=== PATIENT | female | born 1995 | race Caucasian/White ===

== ENCOUNTER 2016-08-17 22:20 | Emergency (ER) | payer OTHER ==
[2016-08-17 22:39] VITALS: BP 117/72; PULSE 109; TEMP 100.1; BMI 30.2
--- NOTE | 2016-08-17 22:42 | PDOC ---
History of Present Illness - General History Source: Patient Exam Limitations: No Limitations - History of Present Illness Timing/Duration: 1 week Associated Symptoms: denies: fever/chills, nausea/vomiting <Raj Albrecht - Last Filed: 08/17/16 23:56> <Branden Elliott - Last Filed: 08/25/16 00:41> - General Chief Complaint: Sore Throat Stated Complaint: THROAT PAIN Past History - Travel Traveled outside of the country in the last 30 days: No Close contact w/someone who was outside of country & ill: No - Past Medical History Anemia: No Asthma: No Cancer: No Cardiac Disorders: No Diabetes: No HTN: No Seizures: No Thyroid Disease: No - Surgical History Abdominal Surgery: No Appendectomy: No Cardiac Surgery: No Gastric Stapling: No - Immunization History Td Vaccination: Yes - Psycho/Social/Smoking Cessation Hx Anxiety: No Suicidal Ideation: No Smoking Status: No Smoking History: Never smoked Have you smoked in the past 12 months: No Number of Cigarettes Smoked Daily: 0 Information on smoking cessation initiated: No Hx Alcohol Use: No Drug/Substance Use Hx: No Substance Use Type: None Hx Substance Use Treatment: No <Tootie Albrechtui - Last Filed: 08/17/16 23:56> <Branden Elliott - Last Filed: 08/25/16 00:41> - Past Medical History Allergies/Adverse Reactions: Allergies Allergy/AdvReac Type Severity Reaction Status Date / Time No Known Allergies Allergy Verified 08/17/16 23:42 Home Medications: Ambulatory Orders Pnv95/Ferrous Fumarate/FA [ Tablet] 1 each PO DAILY 11/20/12 Review of Systems - Review of Systems Able to Perform ROS?: Yes Comments:: 08/17/16 22:41 CONSTITUTIONAL: Absent: fever, chills, diaphoresis, generalized weakness, malaise, loss of appetite HEENT: +throat pain, Absent: rhinorrhea, nasal congestion, throat swelling, difficulty swallowing, mouth swelling, ear pain, eye pain, visual Changes CARDIOVASCULAR: Absent: chest pain, loss of consciousness, palpitations, irregular heart rate, peripheral edema RESPIRATORY: Absent: cough, shortness of breath, dyspnea with exertion, orthopnea, wheezing, stridor, hemoptysis GASTROINTESTINAL: Absent: abdominal pain, abdominal distension, nausea, vomiting, diarrhea, constipation, melena, hematochezia GENITOURINARY: Absent: dysuria, frequency, urgency, hesitancy, hematuria, flank pain, genital pain MUSCULOSKELETAL: Absent: myalgia, arthralgia, joint swelling SKIN: Absent: rash, itching, pallor HEMATOLOGIC/IMMUNOLOGIC: Absent: easy bleeding, easy bruising, lymphadenopathy, frequent infections ENDOCRINE: Absent: unexplained weight gain, unexplained weight loss, heat intolerance, cold intolerance NEUROLOGIC: Absent: headache, focal weakness or paresthesias, dizziness, unsteady gait, seizure, mental status changes, bladder or bowel incontinence PSYCHIATRIC: Absent: anxiety, depression, suicidal or homicidal ideation, hallucinations. Is the patient limited Vietnamese proficient: No <Raj Albrecht - Last Filed: 08/17/16 23:56> *Physical Exam - Vital Signs Last Vital Signs Temp Pulse Resp BP Pulse Ox 100.1 F H 109 H 18 117/72 100 08/17/16 22:37 08/17/16 22:37 08/17/16 22:37 08/17/16 22:37 08/17/16 22:37 - Physical Exam Comments: 08/17/16 22:42 GENERAL: Well developed, well nourished. Awake and alert. No acute distress. HEENT: Normocephalic, atraumatic. PERRLA, EOMI. No conjunctival pallor. Sclera are non- icteric. Moist mucous membranes. Oropharynx is clear. NECK: Supple. Full ROM. No JVD. Carotid pulses 2+ and symmetric, without bruits. No thyromegaly. No lymphadenopathy. CARDIOVASCULAR: Regular rate and rhythm. No murmurs, rubs, or gallops. Distal pulses are 2+ and symmetric. PULMONARY: No evidence of respiratory distress. Lungs clear to auscultation bilaterally. No wheezing, rales or rhonchi. ABDOMINAL: Soft. Non-tender. Non-distended. No rebound or guarding. No organomegaly. Normoactive bowel sounds. MUSCULOSKELETAL Normal range of motion at all joints. No bony deformities or tenderness. No CVA tenderness. EXTREMITIES: No cyanosis. No clubbing. No edema. No calf tenderness. SKIN: Warm and dry. Normal capillary refill. No rashes. No jaundice. NEUROLOGICAL: Alert, awake, appropriate. Cranial nerves 2-12 intact. No deficits to light touch and temperature in face, upper extremities and lower extremities. No motor deficits in the in face, upper extremities and lower extremities. Normoreflexic in the upper and lower extremities. Normal speech. Toes are down- going bilaterally. Gait is normal without ataxia. PSYCHIATRIC: Cooperative. Good eye contact. Appropriate mood and affect. <Raj Albrecht - Last Filed: 08/17/16 23:56> - Vital Signs Last Vital Signs Temp Pulse Resp BP Pulse Ox 100.1 F H 109 H 18 117/72 100 08/17/16 22:37 08/17/16 22:37 08/17/16 22:37 08/17/16 22:37 08/17/16 22:37 <Branden Elliott - Last Filed: 08/25/16 00:41> ED Treatment Course - ADDITIONAL ORDERS Additional order review: 08/17/16 22:05 Throat Culture - Final Throat NO BETA HEMOLYTIC STREPTOCOCCI ISOLATED Group A Strep Rapid Antigen - Final <Branden Elliott - Last Filed: 08/25/16 00:41> Medical Decision Making - Medical Decision Making 08/25/16 00:41 ED Attending: I was available for involvement of this case as needed; supervised MLP. <Branden Elliott - Last Filed: 08/25/16 00:41> *DC/Admit/Observation/Transfer - Discharge Dispostion Admit: No <Raj Albrecht - Last Filed: 08/17/16 23:56> <Branden Elliott - Last Filed: 08/25/16 00:41> Diagnosis at time of Disposition: Pharyngitis Qualifiers: Pharyngitis/tonsillitis etiology: unspecified etiology Qualified Code(s): J02.9 - Acute pharyngitis, unspecified - Discharge Dispostion Disposition: HOME Condition at time of disposition: Stable - Referrals Referrals: Meghann Haddad MD [Primary Care Provider] - Branden Mendez MD [Staff Physician] - - Patient Instructions Printed Discharge Instructions: DI for Viral Pharyngitis Additional Instructions: Follow up with Dr. Mendez/ENT Increase fluids Tylenol alternating with Motrin as needed for pain Return to the Er for severe/persistent/worsening symptoms Progress Note - Progress Note Progress Note: 21-year-old female presents to the emergency department complaining of a sore throat 1 week. Patient states she was seen by her PMD 3 days ago and had a negative strep test. Patient denies nausea/vomiting, fever/chills, headache, dizziness, lightheadedness, neck pains, back pains, jaw pains, difficulty swallowing/drinking, chest pain, shortness of breath, abdominal pains. Patient was seen in the emergency department in [place] and was informed to take Tylenol/ Motrin for pain. Patient states she's here for second opinion. <Raj Albrecht - Last Filed: 08/17/16 23:56>
== END 2016-08-18 00:12 | disposition home or self-care (01) ==
LOC: JER 22:20 → SUPCPDRO 22:20 → JER 08-18 00:12
DX: J02.9 Acute pharyngitis, unspecified (principal)
CPT/HCPCS: 87070; 87430; 99282-25

== ENCOUNTER 2018-07-24 12:59 | Emergency (ER) | payer OTHER ==
[2018-07-24 13:07] VITALS: TEMP 98.2; BMI 27.2
[2018-07-24] MEDS ORDERED: SODIUM CHLORIDE 1,000 ML IV STA (13:46)
[2018-07-24] MEDS ORDERED: ONDANSETRON 4 MG/2 ML VIAL IVPUSH ONE (13:46)
--- NOTE | 2018-07-24 13:46 | PDOC ---
History of Present Illness - General Chief Complaint: Vomiting/Diarrhea Stated Complaint: VOMITING DIARRHEA Time Seen by Provider: 07/24/18 13:30 History Source: Patient Exam Limitations: No Limitations - History of Present Illness Travel History: No Initial Comments: 07/24/18 13:54 HISTORY OF PRESENT ILLNESS: 23-year-old woman denies medical history presents emergency department for upper abdominal pain, nausea and vomiting starting last night. Patient reports she has been unable to tolerate anything orally over the past 18 hours. She reports her most recent vomitus was bilious in nature. Prior to that it was all undigested food and water that she had tried to drink. Patient reports she had chicken breast with avocado and rice last night and other people who ingested the same food or not expressing any symptoms. She reports having intermittent bowel movements reported had 2 episodes of diarrhea which was loose brown stools today. Prior to that her last bowel movement was approximately 2 days ago which was a formed brown stool. Patient reports she is sexually active and had complications with her oral contraception which led to a lapse in treatment. Patient reports she had a menstrual period but it was not as heavy as her usual menstrual period. She reports a negative home test. No recent travel or sick contacts. PAST MEDICAL HISTORY: Denies past medical history SURGICAL HISTORY: Denies ALLERGIES: No known drug allergies REVIEW OF SYSTEMS General/Constitutional: Denies fever or chills. Denies weakness, weight change. HEENT: Denies change in vision. Denies ear pain or discharge. Denies sore throat. Cardiovascular: Denies chest pain or shortness of breath. Respiratory: Denies cough, wheezing, or hemoptysis. Gastrointestinal:see HPI Genitourinary: Denies dysuria, frequency, or change in urination. Musculoskeletal: Denies joint or muscle swelling or pain. Denies neck or back pain. Skin and breasts: Denies rash or easy bruising. Neurologic: Denies headache, vertigo, loss of consciousness, or loss of sensation. Psychiatric: Denies depression or anxiety. Endocrine: Denies increased thirst. Denies abnormal weight change. Hematologic/Lymphatic: Denies anemia, easy bleeding, or history of blood clots. Allergic/Immunologic: Denies hives or skin allergy. Denies latex allergy. PHYSICAL EXAM General Appearance: Well-appearing, appropriately dressed. No apparent distress , no intoxication. HEENT: EOMI, PERRLA, normal ENT inspection, normal voice, TMs normal, pharynx normal. No conjunctival pallor. No photophobia, scleral icterus. Neck: Supple. Trachea midline. No tenderness, rigidity, carotid bruit, stridor , lymphadenopathy, or thyromegaly. Respiratory/Chest: Lungs CTAB. No shortness of breath, chest tenderness, respiratory distress, accessory muscle use. No crackles, rales, rhonchi, stridor , wheezing, dullness Cardiovascular: RRR. S1, S2. No JVD, murmur, bradycardia, tachycardia. Vascular Pulses: Dorsalis-Pedis (R): 2+, Dorsalis-Pedis (L): 2+ Gastrointestinal/Abdominal: Normoactive bowel sounds. Abdomen soft nondistended. Right upper quadrant tenderness noted. Positive guarding. Negative Menon sign remainder of abdominal exam is benign. No organomegaly, pulsatile mass, hernia, hepatomegaly or splenomegaly present. Lymphatic: No adenopathy, tenderness. Musculoskeletal/Extremities: Normal inspection. FROM of all extremities, normal capillary refill. Pelvis Stable. No CVA tenderness. No tenderness to extremities, pedal edema, swelling, erythema or deformity. Integumentary: Appropriate color, dry, warm. No cyanosis, erythema, jaundice or rash Neurologic: hospital librarian II-XII intact. Fully oriented, alert. Appropriate mood/affect. Motor strength 5/5. No appreciable EOM palsy, facial droop or sensory deficit. Past History - Past Medical History Allergies/Adverse Reactions: Allergies Allergy/AdvReac Type Severity Reaction Status Date / Time No Known Allergies Allergy Verified 07/24/18 13:04 Home Medications: Ambulatory Orders Famotidine [Pepcid] 20 mg PO DAILY PRN #30 tablet 07/24/18 Ondansetron [Zofran Odt -] 4 mg SL BID PRN #20 od.tablet 07/24/18 Anemia: No Asthma: No Cancer: No Cardiac Disorders: No COPD: No Diabetes: No HTN: No Seizures: No Thyroid Disease: No - Surgical History Abdominal Surgery: No Appendectomy: No Cardiac Surgery: No Gastric Stapling: No - Immunization History Td Vaccination: Yes - Suicide/Smoking/Psychosocial Hx Smoking Status: No Smoking History: Never smoked Have you smoked in the past 12 months: No Number of Cigarettes Smoked Daily: 0 Hx Alcohol Use: No Drug/Substance Use Hx: No Substance Use Type: None Hx Substance Use Treatment: No *Physical Exam - Vital Signs Last Vital Signs Temp Pulse Resp BP Pulse Ox 98.2 F 82 18 102/57 L 99 07/24/18 13:06 07/24/18 13:06 07/24/18 13:06 07/24/18 13:06 07/24/18 13:06 Moderate Sedation - Procedure Monitoring Vital Signs: Procedure Monitoring Vital Signs Temperature 98.2 F 07/24/18 13:06 Pulse Rate 82 07/24/18 13:06 Respiratory Rate 18 07/24/18 13:06 Blood Pressure 102/57 L 07/24/18 13:06 O2 Sat by Pulse Oximetry (%) 99 07/24/18 13:06 ED Treatment Course - LABORATORY CBC & Chemistry Diagram: 07/24/18 14:00 07/24/18 14:00 Medical Decision Making - Medical Decision Making 07/24/18 13:57 A/P: 23-year-old woman abdominal pain, nausea and vomiting for 1 day Differential diagnosis includes but not limited to obstruction, perforation, peritonitis, infection, cholecystitis, cholelithiasis, pancreatitis, GERD, ACS, Labs including lipase and type and screen Urinalysis, urine culture, urine testing Gallbladder ultrasound Normal saline 1 L Zofran 4 mg IV push no 07/24/18 14:12 Patient with syncopal episode during laboratory draw. Blood sugar collected noted to be 74. IV fluids currently infusing. Patient has returned to baseline without intervention. Pt signed out to MD Phillips. *DC/Admit/Observation/Transfer Diagnosis at time of Disposition: Viral syndrome Nausea and vomiting Qualifiers: Vomiting type: unspecified Vomiting Intractability: non-intractable Qualified Code(s): R11.2 - Nausea with vomiting, unspecified Cholelithiasis Qualifiers: Cholelithiasis location: gallbladder Cholecystitis presence: without cholecystitis Biliary obstruction: without biliary obstruction Qualified Code(s) : K80.20 - Calculus of gallbladder without cholecystitis without obstruction - Discharge Dispostion Disposition: HOME Condition at time of disposition: Improved - Prescriptions Prescriptions: Famotidine [Pepcid] 20 mg PO DAILY PRN #30 tablet PRN Reason: Indigestion Ondansetron [Zofran Odt -] 4 mg SL BID PRN #20 od.tablet PRN Reason: Nausea And/Or Vomiting - Referrals Referrals: [facility] [Provider Group] Magdaleno Ordonez MD [Primary Care Provider] - - Patient Instructions Printed Discharge Instructions: DI for Gallstones, DI for Vomiting -- Adult Additional Instructions: You were seen in the ER today for nausea, vomiting, and diarrhea. The results of your labs and imaging today showed a few small stones in your gallbladder, but were otherwise normal. Please follow-up with your primary care doctor and the surgery group within 1-2 days to discuss your visit and make sure your symptoms have improved. You can be followed by these providers to determine if your gallbladder needs to be removed. Please return to the ER if you have any worsening pain, development of fevers or chills, loss of consciousness, inability to tolerate food or fluids, or any other concerns. I have sent medications for nausea (zofran) and acid reflux (pepcid) to your pharmacy. Please take these medications as prescribed. - Post Discharge Activity Forms/Work/School Notes: Back to Work, Back to School
[2018-07-24 14:23] LABS: BASO % 0.1 % (0-2.0); HEMATOCRIT 41.8 % (32.4-45.2); HEMOGLOBIN 14.5 GM/dL (10.7-15.3); LYMPH % 8.7 % (8-40); MCH 30.1 pg (25.7-33.7); MCHC 34.7 g/dl (32.0-36.0); MEAN CELL VOLUME 86.7 fl (80-96); MEAN PLT VOLUME 8.5 fl (7.5-11.1); MONO % 2.1 % (3.8-10.2); NEUT % 89.1 % (42.8-82.8); PLATELET COUNT 282 K/MM3 (134-434); RBC 4.82 M/mm3 (3.60-5.2); WHITE BLOOD COUNT 10.5 K/mm3 (4.0-10.0)
[2018-07-24 14:50] LABS: ALBUMIN 3.9 g/dl (3.4-5.0); ALK PHOS 59 U/L (45-117); ANION GAP 7 MMOL/L (8-16); BILIRUBIN,TOTAL 0.9 mg/dL (0.2-1); BLOOD UREA NITROGEN 12 mg/dL (7-18); CALCIUM 8.7 mg/dL (8.5-10.1); CHLORIDE 105 mmol/L (98-107); CO2 23 mmol/L (21-32); CREATININE 0.7 mg/dL (0.55-1.3); GLUCOSE,RANDOM 92 mg/dL (74-106); LIPASE 182 U/L (73-393); POTASSIUM 5.2 mmol/L (3.5-5.1); SGOT/AST 37 U/L (15-37); SGPT/ALT 29 U/L (13-61); SODIUM 136 mmol/L (136-145); TOT PROT 7.7 g/dl (6.4-8.2)
--- NOTE | 2018-07-24 15:34 | PDOC ---
*Physical Exam - Vital Signs Last Vital Signs Temp Pulse Resp BP Pulse Ox 98.2 F 82 18 102/57 L 99 07/24/18 13:06 07/24/18 13:06 07/24/18 13:06 07/24/18 13:06 07/24/18 13:06 <Shanna Garcia - Last Filed: 07/24/18 17:36> - Vital Signs Last Vital Signs Temp Pulse Resp BP Pulse Ox 98.2 F 80 16 94/58 L 100 07/24/18 13:06 07/24/18 17:10 07/24/18 17:10 07/24/18 17:19 07/24/18 17:10 <Christen Laws Eusebiaartisabrahan - Last Filed: 07/25/18 14:03> ED Treatment Course - LABORATORY CBC & Chemistry Diagram: 07/24/18 14:00 07/24/18 14:00 - ADDITIONAL ORDERS Additional order review: Laboratory Results 07/24/18 07/24/18 14:06 14:00 Sodium 136 Potassium 5.2 H Chloride 105 Carbon Dioxide 23 Anion Gap 7 L BUN 12 Creatinine 0.7 Creat Clearance w eGFR > 60 POC Glucometer 74 Random Glucose 92 Calcium 8.7 Total Bilirubin 0.9 AST 37 ALT 29 Alkaline Phosphatase 59 Total Protein 7.7 Albumin 3.9 Lipase 182 07/24/18 07/24/18 14:06 14:00 RBC 4.82 MCV 86.7 MCHC 34.7 RDW 14.0 MPV 8.5 Neutrophils % 89.1 H Lymphocytes % 8.7 D Monocytes % 2.1 L Eosinophils % 0.0 Basophils % 0.1 D POC Glucometer 74 - Medications Given in the ED: ED Medications Discontinued Medications Generic Name Dose Route Start Last Admin Trade Name Freq PRN Reason Stop Dose Admin Sodium Chloride 1,000 mls @ 1,000 mls/hr 07/24/18 13:46 07/24/18 13:50 Normal Saline - IV 07/24/18 14:45 1,000 mls/hr ASDIR STA Administration <Shanna Garcia - Last Filed: 07/24/18 17:36> - LABORATORY CBC & Chemistry Diagram: 07/24/18 14:00 07/24/18 14:00 - ADDITIONAL ORDERS Additional order review: Laboratory Results 07/24/18 14:00 Anti-A Titer Cancelled Blood Type Cancelled Antibody Screen Cancelled 07/24/18 07/24/18 14:06 14:00 RBC 4.82 MCV 86.7 MCHC 34.7 RDW 14.0 MPV 8.5 Neutrophils % 89.1 H Lymphocytes % 8.7 D Monocytes % 2.1 L Eosinophils % 0.0 Basophils % 0.1 D POC Glucometer 74 - Medications Given in the ED: ED Medications Discontinued Medications Generic Name Dose Route Start Last Admin Trade Name Sy PRN Reason Stop Dose Admin Al Hydroxide/Mg Hydroxide 30 ml 07/24/18 15:49 07/24/18 16:52 Mylanta Oral Suspension - PO 07/24/18 15:50 30 ml ONCE ONE Administration Sodium Chloride 1,000 mls @ 1,000 mls/hr 07/24/18 13:46 07/24/18 13:50 Normal Saline - IV 07/24/18 14:45 1,000 mls/hr ASDIR STA Administration Famotidine/Sodium Chloride 20 mg in 50 mls @ 100 mls/hr 07/24/18 15:49 16:53 Pepcid 20 Mg Premixed Ivpb - IVPB 07/24/18 16:18 100 mls/hr ONCE ONE Administration Lidocaine HCl 20 ml 07/24/18 15:49 07/24/18 16:53 Xylocaine 2% Viscous Oral - MM 07/24/18 15:50 20 ml ONCE ONE Administration Ondansetron HCl 4 mg 07/24/18 13:46 07/24/18 16:51 Zofran Injection IVPUSH 07/24/18 13:47 4 mg ONCE ONE Administration <Christen Laws - Last Filed: 07/25/18 14:03> Medical Decision Making - Medical Decision Making Pt elevated from [facility], pt had multiple syncopal episodes with IV insertion and removal, with nausea and vomiting. Pt received US due to RUQ tenderness. 07/24/18 15:34 Pending US read. Pt states pain and nausea improved after IVF and zofran. Pt has epigastric tenderness on exam, no rebound, no guarding -- providing 20 mg IV pepcid, PO viscous lidocaine and 30 mg PO maalox. CBC: mildly elevated WBC 10.5 -- likely viral GI syndrome considering history. CMP generally WNL, no evidence of dehydration by labs or exam. Will reassess serial abdominal exams and US read for dispo. 07/24/18 15:50 US: cholelithiasis, no evidence of biliary duct dilatation. No elevated AST, LFTs and Tbili WNL. Will have pt follow outpatient surgery and PCP for further evaluation. Pending serum test. 07/24/18 16:22 UA and serum negative. Sending zofran and pepcid to pt pharmacy. Pt can be discharged to home with follow-up. Pt advised to follow-up with PCP in 1-2 days and has been referred to [facility]. Strict return precautions provided with pt understanding. 07/24/18 17:33 <Shanna Garcia - Last Filed: 07/24/18 17:36> *DC/Admit/Observation/Transfer - Discharge Dispostion Decision to Admit order: No <Shanna Garcia - Last Filed: 07/24/18 17:36> <Christen Laws - Last Filed: 07/25/18 14:03> Diagnosis at time of Disposition: Viral syndrome Nausea and vomiting Qualifiers: Vomiting type: unspecified Vomiting Intractability: non-intractable Qualified Code(s): R11.2 - Nausea with vomiting, unspecified Cholelithiasis Qualifiers: Cholelithiasis location: gallbladder Cholecystitis presence: without cholecystitis Biliary obstruction: without biliary obstruction Qualified Code(s) : K80.20 - Calculus of gallbladder without cholecystitis without obstruction - Discharge Dispostion Disposition: HOME Condition at time of disposition: Improved - Prescriptions Prescriptions: Famotidine [Pepcid] 20 mg PO DAILY PRN #30 tablet PRN Reason: Indigestion Ondansetron [Zofran Odt -] 4 mg SL BID PRN #20 od.tablet PRN Reason: Nausea And/Or Vomiting - Referrals Referrals: Magdaleno Ordonez MD [Primary Care Provider] - [facility] [Provider Group] - Patient Instructions Printed Discharge Instructions: DI for Gallstones, DI for Vomiting -- Adult Additional Instructions: You were seen in the ER today for nausea, vomiting, and diarrhea. The results of your labs and imaging today showed a few small stones in your gallbladder, but were otherwise normal. Please follow-up with your primary care doctor and the surgery group within 1-2 days to discuss your visit and make sure your symptoms have improved. You can be followed by these providers to determine if your gallbladder needs to be removed. Please return to the ER if you have any worsening pain, development of fevers or chills, loss of consciousness, inability to tolerate food or fluids, or any other concerns. I have sent medications for nausea (zofran) and acid reflux (pepcid) to your pharmacy. Please take these medications as prescribed. - Post Discharge Activity Forms/Work/School Notes: Back to Work, Back to School
[2018-07-24] MEDS ORDERED: LIDOCAINE VISCOUS 2% ORAL/TOP 20 ML UNIT-DOSE CUP MM ONE (15:49)
[2018-07-24] MEDS ORDERED: MAG HYDROX/AL HYDROX/SIMETH 30 ML UNIT-DOSE CUP PO ONE (15:49)
[2018-07-24] MEDS ORDERED: FAMOTIDINE 20 MG/50 ML IVPB 20 MG/50 ML MG IVPB ONE ×2 (15:49→16:17)
[2018-07-24] MEDS ORDERED: LIDOCAINE VISCOUS 2% ORAL/TOP 20 ML UNIT-DOSE CUP ONE (16:16)
[2018-07-24] MEDS ORDERED: MAG HYDROX/AL HYDROX/SIMETH 30 ML UNIT-DOSE CUP ONE ×2 (16:16→16:20)
[2018-07-24] MEDS ORDERED: ONDANSETRON 4 MG/2 ML VIAL ONE (16:17)
--- NOTE | 2018-07-24 16:28 | PDOC ---
Attending Attestation - Resident Resident Name: Shanna Garcia - ED Attending Attestation I have performed the following: I have examined & evaluated the patient, The case was reviewed & discussed with the resident, I agree w/resident's findings & plan - HPI HPI: 07/24/18 16:26 The patient is a 23 year old female, with a significant past medical history, who presents to the emergency department with multiple episodes of NBNB emesis and epigastric pain since last night with 2 syncopal episodes while in [facility] during IV placement today. The patient denies chest pain, shortness of breath, headache and dizziness. The patient denies fever, chills, diarrhea and constipation. The patient denies dysuria, frequency, urgency and hematuria. Allergies: NKDA - Physicial Exam PE: 07/24/18 16:26 NAD, well appearing, MMM, nl conjunctiva, anicteric; neck supple. lungs clear, RRR, abdomen soft mild epigastric TTP; no menon's sign. no rebound or guarding. STEVENS x4, no focal neuro deficits. No peripheral edema. normal color for ethnicity, WWP. - Medical Decision Making 07/24/18 16:26 History of present illness as documented Vital signs reviewed, within normal limits no fevers, nontoxic/nonseptic. She was sent over from [facility] due to continue workup. Laboratory results from there reviewed and generally within normal limits, no significant leukocytosis is noted. LFTs and lipase are normal. Ultrasound gallbladder was ordered from there as well which was performed revealing cholelithiasis without signs or symptoms of acute cholecystitis. Patient has mostly epigastric discomfort likely set off from suspicious food intake last night. She was given a GI cocktail, antiemetics and IV fluid hydration with symptomatic improvement. No right upper quadrant or Menon sign noted. Patient can follow-up as no patient with surgery for her cholelithiasis and elective removal if necessary. 07/24/18 16:28
[2018-07-24 17:10] VITALS: PULSE 80
[2018-07-24 17:19] VITALS: BP 94/58
[2018-07-24 17:24] LABS: URINE APPEARANCE CLEAR; URINE BILIRUBIN NEGATIVE (<2.0 mg/dL); URINE COLOR YELLOW; URINE GLUCOSE (UA) NEGATIVE (NEGATIVE); URINE KETONE 2+ (NEGATIVE); URINE LEUK ESTERASE NEGATIVE (NEGATIVE); URINE NITRITE NEGATIVE (NEGATIVE); URINE PROTEIN NEGATIVE (NEGATIVE); URINE UROBILINOGEN NEGATIVE mg/dL (0.2-1.0)
--- NOTE | 2018-07-25 11:44 | EKG ---
Test Reason : Blood Pressure : / mmHG Vent. Rate : 081 BPM Atrial Rate : 081 BPM P-R Int : 148 ms QRS Dur : 078 ms QT Int : 394 ms P-R-T Axes : 053 038 044 degrees QTc Int : 457 ms NORMAL SINUS RHYTHM NORMAL ECG WHEN COMPARED WITH ECG OF 20-NOV-2012 22:27, NO SIGNIFICANT CHANGE WAS FOUND Confirmed by JULIO MORALES MD ([id number]) on 07/25/2018 11:44:38 AM Referred By: Confirmed By:JULIO MORALES MD
== END 2018-07-24 17:57 | disposition home or self-care (01) ==
LOC: JER 12:59
PROC: 3E0337Z Introduction of Electrolytic and Water Balance Substance into Peripheral Vein, Percutaneous Approach (ICD-10-PCS; principal; 2018-07-24)
PROC: 3E033GC Introduction of Other Therapeutic Substance into Peripheral Vein, Percutaneous Approach (ICD-10-PCS; 2018-07-24)
PROC: 3E033GC Introduction of Other Therapeutic Substance into Peripheral Vein, Percutaneous Approach (ICD-10-PCS; 2018-07-24)
DX: A08.4 Viral intestinal infection, unspecified (principal); B97.89 Other viral agents as the cause of diseases classified elsewhere; K80.20 Calculus of gallbladder without cholecystitis without obstruction
CPT/HCPCS: 36415; 76705-TC; 80053; 81003; 82962; 83690; 84703; 85025; 87086; 93005; 93010; 99282-25; J7030

== ENCOUNTER 2018-07-24 22:59 | Inpatient (IN) | payer OTHER ==
[2018-07-24 23:14] VITALS: BMI 27.2
[2018-07-24] MEDS ORDERED: FAMOTIDINE 20 MG/50 ML IVPB 20 MG/50 ML MG IVPB ONE (23:49)
[2018-07-24] MEDS ORDERED: SODIUM CHLORIDE 2,000 ML IV STA (23:49)
[2018-07-24] MEDS ORDERED: ACETAMINOPHEN 1000 MG/100 ML VIAL (NON FORMULARY) IVPB ONE (23:49)
[2018-07-24] MEDS ORDERED: ONDANSETRON 4 MG/2 ML VIAL IVPB ONE (23:49)
--- NOTE | 2018-07-24 23:55 | PDOC ---
History of Present Illness - General History Source: Patient Exam Limitations: No Limitations - History of Present Illness Initial Comments: 07/24/18 23:56 The patient is a 23 year old female, with no significant PMH, who presents to the emergency department tonight after being discharged around 6pm earlier today after evaluation of similar symptoms. Patient presents with several episodes vomitings and upper abdominal pain. Patient states she was discharged earlier today, but has not been able to keep anything down since. She notes a subjective fever after leaving the hospital The patient denies chest pain, shortness of breath, headache and dizziness. Denies chills, nausea, vomit, diarrhea and constipation. Denies dysuria, frequency, urgency and hematuria. Allergies: NKA Social history: None reported PCP: Dr. Ordonez <Clara Davey - Last Filed: 07/24/18 23:56> - General History Source: Patient Exam Limitations: No Limitations <Collin Brennan - Last Filed: 07/25/18 02:27> - General Chief Complaint: Nausea/Vomiting Stated Complaint: VOMITING FEVER Time Seen by Provider: 07/24/18 23:39 Past History <Clara Davey - Last Filed: 07/24/18 23:56> - Past Medical History COPD: No - Suicide/Smoking/Psychosocial Hx Smoking History: Never smoked Have you smoked in the past 12 months: No Information on smoking cessation initiated: No Hx Alcohol Use: No Drug/Substance Use Hx: No <Collin Brennan - Last Filed: 07/25/18 02:27> - Past Medical History Allergies/Adverse Reactions: Allergies Allergy/AdvReac Type Severity Reaction Status Date / Time No Known Allergies Allergy Verified 07/24/18 23:14 Review of Systems - Review of Systems Comments:: 07/24/18 23:56 GENERAL/CONSTITUTIONAL: No fever or chills. No weakness. HEAD, EYES, EARS, NOSE AND THROAT: No change in vision. No ear pain or discharge. No sore throat. CARDIOVASCULAR: No chest pain or shortness of breath. RESPIRATORY: No cough, wheezing, or hemoptysis. GASTROINTESTINAL: (+) Nause, (+)Vomitiing, (+)upper abdominal pain. No diarrhea or constipation. GENITOURINARY: No dysuria, frequency, or change in urination. MUSCULOSKELETAL: No joint or muscle swelling or pain. No neck or back pain. SKIN: No rash NEUROLOGIC: No headache, vertigo, loss of consciousness, or change in strength/ sensation. <KimokaykayRaul kingmi - Last Filed: 07/24/18 23:56> *Physical Exam - Vital Signs Last Vital Signs Temp Pulse Resp BP Pulse Ox 98.4 F 95 H 16 100/52 L 100 07/24/18 23:12 07/24/18 23:12 07/24/18 23:12 07/24/18 23:12 07/24/18 23:12 - Physical Exam Comments: 07/24/18 23:56 GENERAL: Awake, alert, and fully oriented, in no acute distress HEAD: No signs of trauma EYES: PERRLA, EOMI, sclera anicteric, conjunctiva clear ENT: Auricles normal inspection, hearing grossly normal, nares patent. NECK: Normal ROM, supple. LUNGS: Breath sounds equal, clear to auscultation bilaterally. No wheezes, and no crackles HEART: Regular rate and rhythm, normal S1 and S2, no murmurs, rubs or gallops ABDOMEN: (+) Right, middle, left abdominal tenderness. Soft, no guarding, no rebound. No masses EXTREMITIES: Normal range of motion, no edema. No clubbing or cyanosis. No cords, erythema, or tenderness NEUROLOGICAL: Cranial nerves II through XII grossly intact. Normal speech. SKIN: Warm, Dry, normal turgor, no rashes or lesions noted. <KimokieranClara - Last Filed: 07/24/18 23:56> - Vital Signs Last Vital Signs Temp Pulse Resp BP Pulse Ox 98.4 F 95 H 16 100/52 L 100 07/24/18 23:12 07/24/18 23:12 07/24/18 23:12 07/24/18 23:12 07/24/18 23:12 <Collin Brennan - Last Filed: 07/25/18 02:27> Moderate Sedation - Procedure Monitoring Vital Signs: Procedure Monitoring Vital Signs Temperature 98.4 F 07/24/18 23:12 Pulse Rate 95 H 07/24/18 23:12 Respiratory Rate 16 07/24/18 23:12 Blood Pressure 100/52 L 07/24/18 23:12 O2 Sat by Pulse Oximetry (%) 100 07/24/18 23:12 <TamicaClara - Last Filed: 07/24/18 23:56> - Procedure Monitoring Vital Signs: Procedure Monitoring Vital Signs Temperature 98.4 F 07/24/18 23:12 Pulse Rate 95 H 07/24/18 23:12 Respiratory Rate 16 07/24/18 23:12 Blood Pressure 100/52 L 07/24/18 23:12 O2 Sat by Pulse Oximetry (%) 100 07/24/18 23:12 <Collin Brennan - Last Filed: 07/25/18 02:27> ED Treatment Course - LABORATORY CBC & Chemistry Diagram: 07/25/18 00:29 07/25/18 00:29 <Collin Brennan - Last Filed: 07/25/18 02:27> Medical Decision Making - Medical Decision Making 07/24/18 23:50 A portion of this note was documented by scribe services under my direction. I have reviewed the details of the note, within reason, and agree with the documentation with the following case summary and management plan written by me. Patient treated in the ED. Nursing notes are reviewed and incorporated into the medical decision-making. Vital signs reviewed. Peripheral IV access obtained by the nurse, laboratory studies are drawn and sent, reviewed and interpreted by myself. Vital Signs Temp Pulse Resp BP Pulse Ox 98.4 F 95 H 16 100/52 L 100 07/24/18 23:12 07/24/18 23:12 07/24/18 23:12 07/24/18 23:12 07/24/18 23:12 23-year-old female with past medical history of gallstones returns back to the ED for persistent upper abdominal pain and nausea and vomiting. The patient was seen here several hours ago (Chart name: Nadira Moffett [id number]) with nausea, vomiting, and tactile fever. Was diagnosed with cholethiasis (ultrasound was done, labs reviewed, pt not ). The patient was d/c'd. However, continued to have persistent vomiting. Unable to tolerate PO medications including zofran. Still with persistent abdominal pain. Differential includes: biliary colic, gastroenteritis. If pt unable to tolerate PO, will need to admit the patient to the hospital. 07/25/18 02:08 CBC, BMP 07/25/18 00:29 07/25/18 00:29 CMP Sodium 138 mmol/L (136-145) 07/25/18 00:29 Potassium 3.8 mmol/L (3.5-5.1) 07/25/18 00:29 Chloride 105 mmol/L (98-107) 07/25/18 00:29 Carbon Dioxide 26 mmol/L (21-32) 07/25/18 00:29 Anion Gap 7 MMOL/L (8-16) L 07/25/18 00:29 BUN 10 mg/dL (7-18) 07/25/18 00:29 Creatinine 0.8 mg/dL (0.55-1.3) 07/25/18 00:29 Creat Clearance w eGFR > 60 (>60) 07/25/18 00:29 Random Glucose 90 mg/dL (74-106) 07/25/18 00:29 Calcium 8.5 mg/dL (8.5-10.1) 07/25/18 00:29 Total Bilirubin 0.8 mg/dL (0.2-1) 07/25/18 00:29 AST 25 U/L (15-37) 07/25/18 00:29 ALT 28 U/L (13-61) 07/25/18 00:29 Alkaline Phosphatase 59 U/L (45-117) 07/25/18 00:29 Total Protein 7.4 g/dl (6.4-8.2) 07/25/18 00:29 Albumin 3.8 g/dl (3.4-5.0) 07/25/18 00:29 Pt continues to have nausea and inability to tolerate PO. Will admit the patient to the hospital for further management. 07/25/18 02:[address] Good Bertrand. Pt accepted to med/surg observation. Case discussed in detail with admitting physician including history, physical exam and ancillary studies. Admitting physician has assumed care for the patient, will follow all pending diagnostics and will complete the evaluation and treatment. <Collin Brennan - Last Filed: 07/25/18 02:27> *DC/Admit/Observation/Transfer - Attestations Scribe Attestion: 07/24/18 23:56 Documentation prepared by Clara Davey, acting as medical nurse for Collin Brennan MD. <Clara Davey - Last Filed: 07/24/18 23:56> - Discharge Dispostion Decision to Admit order: Yes <Collin Brennan - Last Filed: 07/25/18 02:27> Diagnosis at time of Disposition: Vomiting Qualifiers: Vomiting type: unspecified Vomiting Intractability: non-intractable Nausea presence: without nausea Qualified Code(s): R11.11 - Vomiting without nausea - Discharge Dispostion Condition at time of disposition: Stable - Referrals Referrals: Magdaleno Ordonez MD [Primary Care Provider] - - Patient Instructions - Post Discharge Activity
[2018-07-25] MEDS ORDERED: ACETAMINOPHEN INJECTION 100 ML IVPB ONE (00:15)
[2018-07-25] MEDS ORDERED: ONDANSETRON 4 MG/2 ML VIAL ONE (00:15)
[2018-07-25] MEDS ORDERED: FAMOTIDINE 20 MG/50 ML IVPB 20 MG/50 ML MG IVPB ONE (00:15)
[2018-07-25 01:11] LABS: BASO % 0.2 % (0-2.0); HEMATOCRIT 37.5 % (32.4-45.2); HEMOGLOBIN 13.1 GM/dL (10.7-15.3); LYMPH % 7.7 % (8-40); MCH 30.1 pg (25.7-33.7); MCHC 34.9 g/dl (32.0-36.0); MEAN CELL VOLUME 86.1 fl (80-96); MEAN PLT VOLUME 8.6 fl (7.5-11.1); MONO % 3.2 % (3.8-10.2); NEUT % 88.9 % (42.8-82.8); PLATELET COUNT 253 K/MM3 (134-434); RBC 4.36 M/mm3 (3.60-5.2); RDW 13.6 % (11.6-15.6); WHITE BLOOD COUNT 7.2 K/mm3 (4.0-10.0)
[2018-07-25 01:37] LABS: ALBUMIN 3.8 g/dl (3.4-5.0); ALK PHOS 59 U/L (45-117); ANION GAP 7 MMOL/L (8-16); BILIRUBIN,TOTAL 0.8 mg/dL (0.2-1); BLOOD UREA NITROGEN 10 mg/dL (7-18); CALCIUM 8.5 mg/dL (8.5-10.1); CHLORIDE 105 mmol/L (98-107); CO2 26 mmol/L (21-32); CREATININE 0.8 mg/dL (0.55-1.3); GLUCOSE,RANDOM 90 mg/dL (74-106); POTASSIUM 3.8 mmol/L (3.5-5.1); SGOT/AST 25 U/L (15-37); SGPT/ALT 28 U/L (13-61); SODIUM 138 mmol/L (136-145); TOT PROT 7.4 g/dl (6.4-8.2)
[2018-07-25] MEDS ORDERED: PROCHLORPERAZINE INJECTION 10 MG/2 ML VIAL IVPB PRN (02:41)
--- NOTE | 2018-07-25 02:42 | HP ---
CHIEF COMPLAINT: abdominal pain, n/v HISTORY OF PRESENT ILLNESS: Patient is a 23 yo F with no significant PMHx presented today because of 8/10, sharp, non-radiating, periumbilical abdominal pain that started yesterday night with nausea and vomiting. She said she went to sleep and woke up with severe nausea and had many episodes of NBNB vomiting since. She went to the ER yesterday when the symptoms started and was discharged. U/S was done which showed cholelithiasis. After she went home she said she tried to swallow food and vomited, thats when she decided to come back to the ER. Before the symptoms started patient said she ate home made rice and chicken. She said she never experienced symptoms like this before. Her LMP was 1 week ago. She denies chills, fevers, sob, blood in stools, vaginal discharge, diarrhea, hematemesis, headaches, chest pain, cough, weight changes. ER course was notable for: (1) Iv fluids 1 L NS Recent Travel: denies PAST MEDICAL HISTORY: none PAST SURGICAL HISTORY: none Social History: Smoking: denies Alcohol: denies Drugs: denies Sexually active, 1 partner. on control. Family History: Allergies No Known Allergies Allergy (Verified 07/24/18 23:14) HOME MEDICATIONS: REVIEW OF SYSTEMS CONSTITUTIONAL: Absent: fever, chills, diaphoresis, generalized weakness, malaise, loss of appetite, weight change HEENT: Absent: rhinorrhea, nasal congestion, throat pain, throat swelling, difficulty swallowing, mouth swelling, ear pain, eye pain, visual changes CARDIOVASCULAR: Absent: chest pain, syncope, palpitations, irregular heart rate, lightheadedness , peripheral edema RESPIRATORY: Absent: cough, shortness of breath, dyspnea with exertion, orthopnea, wheezing, stridor, hemoptysis GASTROINTESTINAL: abd pain, nausea, vomiting Absent: abdominal distension, diarrhea, constipation, melena, hematochezia GENITOURINARY: Absent: dysuria, frequency, urgency, hesitancy, hematuria, flank pain, genital pain MUSCULOSKELETAL: Absent: myalgia, arthralgia, joint swelling, back pain, neck pain SKIN: Absent: rash, itching, pallor PHYSICAL EXAMINATION Vital Signs - 24 hr 07/24/18 23:12 Temperature 98.4 F Pulse Rate 95 H Respiratory 16 Rate Blood Pressure 100/52 L O2 Sat by Pulse 100 Oximetry (%) GENERAL: Awake, alert, and fully oriented, in no acute distress. HEAD: Normal with no signs of trauma. EYES: Pupils equal, round and reactive to light, extraocular movements intact, sclera anicteric, conjunctiva clear. EARS, NOSE, THROAT: oropharynx clear without exudates. Moist mucous membranes. NECK: supple without lymphadenopathy, JVD, or masses. LUNGS: Breath sounds equal, clear to auscultation bilaterally. No wheezes, and no crackles. HEART: Regular rate and rhythm, normal S1 and S2 without murmur, rub or gallop. ABDOMEN: Soft, mildy tender in LLQ, RLQ, periumbilical, no distention, negative chapman. no guarding LOWER EXTREMITIES: 2+ pulses, warm, well-perfused. No peripheral edema. NEUROLOGICAL: Cranial nerves II-XII intact. Normal speech. PSYCHIATRIC: Cooperative. Good eye contact. SKIN: Warm, dry, normal turgor, no rashes or lesions noted, normal capillary refill. Laboratory Results - last 24 hr 07/25/18 07/25/18 00:29 00:29 WBC 7.2 RBC 4.36 Hgb 13.1 Hct 37.5 MCV 86.1 MCH 30.1 MCHC 34.9 RDW 13.6 Plt Count 253 MPV 8.6 Absolute Neuts (auto) 6.4 Neutrophils % 88.9 H Lymphocytes % 7.7 L Monocytes % 3.2 L Eosinophils % 0.0 Basophils % 0.2 Nucleated RBC % 0 Sodium 138 Potassium 3.8 Chloride 105 Carbon Dioxide 26 Anion Gap 7 L BUN 10 Creatinine 0.8 Creat Clearance w eGFR > 60 Random Glucose 90 Calcium 8.5 Total Bilirubin 0.8 AST 25 ALT 28 Alkaline Phosphatase 59 Total Protein 7.4 Albumin 3.8 ASSESSMENT/PLAN: 23 yo F with no significant PMHx presented today because of 8/10, sharp, non- radiating, periumbilical abdominal pain that started yesterday night. #Abdominal pain -gastroenteritis vs biliary colic -IV fluids LR @100 -NPO -US: cholelithiasis. otherwise unremarkable -consider surgery consult. differential: cholecystitis -Zofran PRN for Nausea, QTC 458 -Famotidine 20mg Daily -utox -negative -Her last ER visit is under another Spelling, "Naiomy" #FEN -LR @ 100ml/hour -WNL -NPO #DVT -EAB -SCD dispo: obs Visit type - Emergency Visit Emergency Visit: Yes ED Registration Date: 07/27/18 Care time: The patient presented to the Emergency Department on the above date and was hospitalized for further evaluation of their emergent condition. - New Patient This patient is new to me today: Yes Date on this admission: 07/28/18 - Critical Care Critical Care patient: No
--- NOTE | 2018-07-25 02:53 | PN ---
Teaching Attending Note Name of Resident: Good Smith ATTENDING PHYSICIAN STATEMENT I saw and evaluated the patient. I reviewed the resident's note and discussed the case with the resident. I agree with the resident's findings and plan as documented. SUBJECTIVE: Seen and examined; please refer to resident note for further historical documentation. Briefly, the patient presents to the ER for the second time in 24 hours for uncontrolled nausea and vomitting. The first visit is under another name (Nadira Moffett [id number]). She has 1.5 days of nausea and vomitting (bilious) and inability to keep food down. Nothing makes it better or worse, hasn't had this issue before. Improved initially with zofran. She is afebrile and hemodynamically stable. No sx. Her labs are practically unremarkable. During her first visit she is documented as syncopizing multiple times in the ER. She vomited between 2-3 times when she got home which is why she came back. No further syncope. Asked to admit for inability to tolerate PO. 10 sys ROS done and negative aside from HPI PMH, PSH, Family hx, Social hx reviewed Medications pending reconciliation OBJECTIVE: VS, labs, imaging reviewed NAD, AAO, resting comfortably in bed NC AT EOMI PERRLA RRR s1/2 no mgr Lungs CTAB, w/ sym exp Diffuse mild abd tenderness without guarding, ND, +BS CN2-12 wnl, no fnd Normal mood, appropriate behavior ASSESSMENT AND PLAN: Patient with no pertinent PMH presents with intactable nausea and vomitting. 1) Intractable nausea/vomiting -Ddx is broad but involves gastroenteritis vs. biliary colic (gallstones present on abdominal US on other chart but no s/s cholecystitis) -LR@100, PRN Zofran (check QTc first as she has already gotten quite a bit today ); can try phenergan, etc. if this doesnt work. Check flu. Famotidine 20 QD. -NPO, can advance diet as tolerated 2) Cholelithiasis -Consider sgy referral in AM; no s/s cholecystitis FENA -LR@100 -PRN replete -NPO -As tolerated Full Code
[2018-07-25] MEDS ORDERED: ONDANSETRON 4 MG/2 ML VIAL IVPUSH PRN (03:38)
[2018-07-25] MEDS: LACTATED RINGERS SOLUTION 1,000 ML IV SCH ×2 (06:02→19:56)
[2018-07-25 07:56] LABS: COCAINE, UR NEGATIVE ng/ml (CUTOFF=300); METHADONE, UR NEGATIVE ng/ml (CUTOFF=300); OPIATES, URI NEGATIVE ng/ml (CUTOFF=300); PHENCYCLIDINE,URINE NEGATIVE ng/ml (CUTOFF=25); URINE AMPHETAMINES NEGATIVE ng/ml (CUTOFF=500); URINE BARBITURATES NEGATIVE ng/ml (CUTOFF=200); URINE BENZODIAZEPINES NEGATIVE ng/ml (CUTOFF=200)
[2018-07-25] MEDS: FAMOTIDINE 20 MG/50 ML IVPB 20 MG/50 ML MG IVPB SCH (09:29)
[2018-07-25] MEDS ORDERED: FAMOTIDINE 20 MG/50 ML IVPB 20 MG/50 ML MG IVPB SCH (10:00)
[2018-07-25] MEDS ORDERED: PROMETHAZINE HCL 25 MG TABLET PO PRN (11:12)
--- NOTE | 2018-07-25 11:31 | EKG ---
Test Reason : Blood Pressure : / mmHG Vent. Rate : 079 BPM Atrial Rate : 079 BPM P-R Int : 168 ms QRS Dur : 084 ms QT Int : 400 ms P-R-T Axes : 050 024 032 degrees QTc Int : 458 ms NORMAL SINUS RHYTHM NONSPECIFIC T WAVE ABNORMALITY ABNORMAL ECG NO PREVIOUS ECGS AVAILABLE Confirmed by JULIO MORALES MD ([id number]) on 07/25/2018 11:31:23 AM Referred By: Confirmed By:JULIO MORALES MD
[2018-07-25] MEDS ORDERED: PT OWN MED DRAWER 7, Y5N ONE (14:07)
--- NOTE | 2018-07-25 15:33 | PN ---
Physical Exam: SUBJECTIVE: Patient seen and examined at bedside- no acute events overnight; patient states she is still having some nausea- however she denies any vomiting or diarrhea since shes been in the hospital. denies any CP/SOB/N/V fevers or chills OBJECTIVE: Vital Signs Period Temp Pulse Resp BP Sys/Jansen Pulse Ox Last 24 Hr 98.3 F-98.9 F 71-95 16-17 95-106/44-55 99-100 GENERAL: The patient is awake, alert, and fully oriented, in no acute distress. EYES: PEERLA: no scleral icterus NECK: no JVD, no lymphadenopathy LUNGS: CTA B/L; no rales, rhonchi or wheezing. HEART: Regular rate and rhythm, S1, S2 without murmur, rub or gallop. ABDOMEN: Soft, nontender, nondistended, normoactive bowel sounds, no guarding, no rebound, no hepatosplenomegaly, no masses. EXTREMITIES: 2+ pulses, warm, well-perfused, no edema. NEUROLOGICAL: Cranial nerves II through XII grossly intact. Normal speech, gait not observed. PSYCH: Normal mood, normal affect. SKIN: Warm, dry, normal turgor, no rashes or lesions noted Laboratory Results - last 24 hr 07/25/18 07/25/18 07/25/18 00:29 00:29 06:08 WBC 7.2 RBC 4.36 Hgb 13.1 Hct 37.5 MCV 86.1 MCH 30.1 MCHC 34.9 RDW 13.6 Plt Count 253 MPV 8.6 Absolute Neuts (auto) 6.4 Neutrophils % 88.9 H Lymphocytes % 7.7 L Monocytes % 3.2 L Eosinophils % 0.0 Basophils % 0.2 Nucleated RBC % 0 Sodium 138 Potassium 3.8 Chloride 105 Carbon Dioxide 26 Anion Gap 7 L BUN 10 Creatinine 0.8 Creat Clearance w eGFR > 60 Random Glucose 90 Calcium 8.5 Total Bilirubin 0.8 AST 25 ALT 28 Alkaline Phosphatase 59 Total Protein 7.4 Albumin 3.8 Opiates Screen Negative Methadone Screen Negative Barbiturate Screen Negative Phencyclidine Screen Negative Ur Amphetamines Screen Negative MDMA (Ecstasy) Screen Negative Benzodiazepines Screen Negative Cocaine Screen Negative U Marijuana (THC) Screen Negative Active Medications Generic Name Dose Route Start Last Admin Trade Name Freq PRN Reason Stop Dose Admin Lactated Ringer's 1,000 mls @ 100 mls/hr 07/25/18 02:45 07/25/18 06:02 Lactated Ringers Solution IV 100 mls/hr ASDIR LINDA Administration Famotidine/Sodium Chloride 20 mg in 50 mls @ 100 mls/hr 07/25/18 10:00 09:29 Pepcid 20 Mg Premixed Ivpb - IVPB 100 mls/hr DAILY LINDA Administration Ondansetron HCl 4 mg 07/25/18 03:38 Zofran Injection IVPUSH Q4H PRN NAUSEA AND/OR VOMITING Prochlorperazine Edisylate 10 mg 07/25/18 02:41 Compazine Injection - IVPB Q4H PRN NAUSEA AND/OR VOMITING Promethazine HCl 12.5 mg 07/25/18 11:12 Phenergan - PO Q6H PRN NAUSEA AND/OR VOMITING ASSESSMENT/PLAN: 23 yo F with no significant PMHx presented because of 01/10, sharp, non- radiating, periumbilical abdominal pain that started yesterday night. #Abdominal pain -gastroenteritis vs biliary colic -IV fluids LR @100 -NPO -US: cholelithiasis. otherwise unremarkable -GI saw the patient; will be going for HIDA scan -ceftriaxone and flagyl to be started -compazine PRN for Nausea, QTC 458 -Famotidine 20mg Daily -utox negative -negative #FEN -LR @ 100ml/hour -WNL -NPO #DVT -EAB -SCD Problem List - Problems (1) Cholelithiasis Code(s): K80.20 - CALCULUS OF GALLBLADDER W/O CHOLECYSTITIS W/O OBSTRUCTION (2) Vomiting Code(s): R11.10 - VOMITING, UNSPECIFIED Qualifiers: Vomiting type: unspecified Vomiting Intractability: non-intractable Nausea presence: without nausea Qualified Code(s): R11.11 - Vomiting without nausea Visit type - Emergency Visit Emergency Visit: Yes ED Registration Date: 07/25/18 Care time: The patient presented to the Emergency Department on the above date and was hospitalized for further evaluation of their emergent condition. - New Patient This patient is new to me today: Yes Date on this admission: 07/25/18 - Critical Care Critical Care patient: No
--- NOTE | 2018-07-25 17:32 | PN ---
Teaching Attending Note Name of Resident: Suzy Brumfield ATTENDING PHYSICIAN STATEMENT I saw and evaluated the patient. I reviewed the resident's note and discussed the case with the resident. I agree with the resident's findings and plan as documented. SUBJECTIVE: No fever or chills . Abd pain in upper abd . nausea but no vomiting . feels better OBJECTIVE: NAD, MMM, enlarged tonsils with erythema but no exudate CV: RRR Lungs: CTAB Ext: no edema Abd: soft, ND, TTP in LUQ, RUQ, and epigastric area, with no rebound or guarding. Nl Bs, Neg Menon's ASSESSMENT AND PLAN: 23 y/o lady with no sig PMH who presented with Abd pain and N/V. 1- Abd pain, N/V: ? gastroenteritis. vs gastritis. Neg Menon's . low suspicion for cholecystitis , . has cholelithiasis on US form yesterday - IVF. - NPO - rapid strep test - seen by GI and HIDA was recommended - monitor electrolytes. - will give compazine for Nausea. as her QTC on higher side will follow results.
[2018-07-25] MEDS: ACETAMINOPHEN 1000 MG/100 ML VIAL (NON FORMULARY) IVPB PRN (19:56)
[2018-07-26] MEDS: LACTATED RINGERS SOLUTION 1,000 ML IV SCH (03:34)
[2018-07-26 08:23] LABS: BASO % 0.1 % (0-2.0); EOS % 0.8 % (0-4.5); HEMATOCRIT 34.9 % (32.4-45.2); HEMOGLOBIN 12.3 GM/dL (10.7-15.3); LYMPH % 19.3 % (8-40); MCH 30.7 pg (25.7-33.7); MCHC 35.3 g/dl (32.0-36.0); MEAN PLT VOLUME 8.2 fl (7.5-11.1); MONO % 6.7 % (3.8-10.2); NEUT % 73.1 % (42.8-82.8); PLATELET COUNT 239 K/MM3 (134-434); RBC 4.01 M/mm3 (3.60-5.2); RDW 13.3 % (11.6-15.6); WHITE BLOOD COUNT 4.9 K/mm3 (4.0-10.0)
[2018-07-26 08:52] LABS: ANION GAP 9 MMOL/L (8-16); BLOOD UREA NITROGEN 8 mg/dL (7-18); CALCIUM 7.8 mg/dL (8.5-10.1); CHLORIDE 107 mmol/L (98-107); CO2 22 mmol/L (21-32); CREATININE 0.6 mg/dL (0.55-1.3); GLUCOSE,RANDOM 53 mg/dL (74-106); MAGNESIUM 2.1 mg/dL (1.8-2.4); PHOSPHOROUS 3.2 mg/dL (2.5-4.9); POTASSIUM 3.8 mmol/L (3.5-5.1); SODIUM 139 mmol/L (136-145)
[2018-07-26] MEDS: FAMOTIDINE 20 MG/50 ML IVPB 20 MG/50 ML MG IVPB SCH (10:10)
--- NOTE | 2018-07-26 13:51 | PN ---
Teaching Attending Note Name of Resident: Valentín Wilson ATTENDING PHYSICIAN STATEMENT I saw and evaluated the patient. I reviewed the resident's note and discussed the case with the resident. I agree with the resident's findings and plan as documented. SUBJECTIVE: No fever or chills . minimal abd pain, much im[proved. No vomiting but still minimally nauseated. OBJECTIVE: NAD, MMM, CV: RRR, 2/6 Sm at LUSb and RUSB. Lungs: CTAB Ext: no edema Abd: soft, ND,minimal TTP in LUQ, RUQ, and epigastric area, with no rebound or guarding. Nl Bs, ASSESSMENT AND PLAN: 23 y/o lady with no sig PMH who presented with Abd pain and N/V. 1- Abd pain, N/V: ? gastroenteritis. vs gastritis. neg HIDA. start full liquid diet, if toelerated can davance diet slowly at home as tolerated. ppi at dc 2- heart murmur. she was made aware , and will follow with her PCP at [facility] for an echo. if tolerates diet , will dc home
--- NOTE | 2018-07-26 14:36 | CON.GI ---
Consult Consult Specialty:: Gastroenterology ( covering Dr Ocampo) Referred by:: Dr. Suzy Brumfield Reason for Consultation:: Abdominal pain, vomiting and diarrhea - History of Present Illness Chief Complaint: Nausea, vomiting, abdominal pain and diarrhea History of Present Illness: 23F developed sudden onset of nausea, bilious vomiting, dull aching epigastric pain and diarrhea on 07/23. She also had chills and malaise. She was evaluated in the ER where a sonogram revealed a gallstone. She returned when her symptoms failed to resolve and kept her from eating. A Hida scan is negative. Tolerating liquids. - History Source History Provided By: Patient Limitations to Obtaining History: No Limitations - Past Medical History ...LMP: 07/14/18 ...: No - Past Surgical History Past Surgical History: Yes: None - Alcohol/Substance Use Hx Alcohol Use: No History of Substance Use: reports: None - Smoking History Smoking history: Never smoked Have you smoked in the past 12 months: No - Social History Usual Living Arrangement: With Parent ADL: Independent Occupation: [employer] Place of : [facility] History of Recent Travel: No Home Medications - Allergies Allergies/Adverse Reactions: Allergies Allergy/AdvReac Type Severity Reaction Status Date / Time No Known Allergies Allergy Verified 07/24/18 23:14 - Home Medications Home Medications: Ambulatory Orders NK [No Known Home Medication] 07/26/18 Family Disease History - Family Disease History Family Disease History: CA: Grandparent (lung cancer), Other: Father (healthy), Mother (s/p bariatric gastric bypass) Other Family History: Uncle with melanoma Review of Systems - Review of Systems Constitutional: reports: Chills, Malaise Eyes: reports: No Symptoms HENT: reports: No Symptoms Neck: reports: No Symptoms Cardiovascular: reports: No Symptoms Respiratory: reports: No Symptoms Gastrointestinal: reports: Abdominal Pain, Diarrhea, Nausea, Vomiting Genitourinary: reports: No Symptoms Physical Exam-GI Vital Signs: Vital Signs Temperature 98.0 F 07/26/18 10:00 Pulse Rate 70 07/26/18 10:00 Respiratory Rate 18 07/26/18 12:00 Blood Pressure 98/57 L 07/26/18 10:00 O2 Sat by Pulse Oximetry (%) 100 07/26/18 12:00 CBC,CMP WBC 4.9 K/mm3 (4.0-10.0) 07/26/18 07:40 RBC 4.01 M/mm3 (3.60-5.2) 07/26/18 07:40 Hgb 12.3 GM/dL (10.7-15.3) 07/26/18 07:40 Hct 34.9 % (32.4-45.2) 07/26/18 07:40 MCV 87.0 fl (80-96) 07/26/18 07:40 MCH 30.7 pg (25.7-33.7) 07/26/18 07:40 MCHC 35.3 g/dl (32.0-36.0) 07/26/18 07:40 RDW 13.3 % (11.6-15.6) 07/26/18 07:40 Plt Count 239 K/MM3 (134-434) 07/26/18 07:40 MPV 8.2 fl (7.5-11.1) 07/26/18 07:40 Absolute Neuts (auto) 3.5 K/mm3 (1.5-8.0) 07/26/18 07:40 Neutrophils % 73.1 % (42.8-82.8) 07/26/18 07:40 Lymphocytes % 19.3 % (8-40) D 07/26/18 07:40 Monocytes % 6.7 % (3.8-10.2) D 07/26/18 07:40 Eosinophils % 0.8 % (0-4.5) D 07/26/18 07:40 Basophils % 0.1 % (0-2.0) 07/26/18 07:40 Nucleated RBC % 0 % (0-0) 07/26/18 07:40 Sodium 139 mmol/L (136-145) 07/26/18 07:40 Potassium 3.8 mmol/L (3.5-5.1) 07/26/18 07:40 Chloride 107 mmol/L (98-107) 07/26/18 07:40 Carbon Dioxide 22 mmol/L (21-32) 07/26/18 07:40 Anion Gap 9 MMOL/L (8-16) 07/26/18 07:40 BUN 8 mg/dL (7-18) 07/26/18 07:40 Creatinine 0.6 mg/dL (0.55-1.3) 07/26/18 07:40 Creat Clearance w eGFR > 60 (>60) 07/26/18 07:40 Random Glucose 53 mg/dL (74-106) L 07/26/18 07:40 Calcium 7.8 mg/dL (8.5-10.1) L 07/26/18 07:40 Phosphorus 3.2 mg/dL (2.5-4.9) 07/26/18 07:40 Magnesium 2.1 mg/dL (1.8-2.4) 07/26/18 07:40 Total Bilirubin 0.8 mg/dL (0.2-1) 07/25/18 00:29 AST 25 U/L (15-37) 07/25/18 00:29 ALT 28 U/L (13-61) 07/25/18 00:29 Alkaline Phosphatase 59 U/L (45-117) 07/25/18 00:29 Total Protein 7.4 g/dl (6.4-8.2) 07/25/18 00:29 Albumin 3.8 g/dl (3.4-5.0) 07/25/18 00:29 Current Medications Generic Name Dose Route Start Last Admin Trade Name Freq PRN Reason Stop Dose Admin Acetaminophen 1,000 mg 07/25/18 19:47 07/25/18 19:56 Ofirmev Injection - IVPB 1,000 mg Q6H PRN Administration PAIN LEVEL 6-10 Lactated Ringer's 1,000 mls @ 100 mls/hr 07/25/18 02:45 07/26/18 03:34 Lactated Ringers Solution IV Not Given ASDIR LINDA Famotidine/Sodium Chloride 20 mg in 50 mls @ 100 mls/hr 07/25/18 10:00 10:10 Pepcid 20 Mg Premixed Ivpb - IVPB 100 mls/hr DAILY LINDA Administration Ondansetron HCl 4 mg 07/25/18 03:38 Zofran Injection IVPUSH Q4H PRN NAUSEA AND/OR VOMITING Prochlorperazine Edisylate 10 mg 07/25/18 02:41 Compazine Injection - IVPB Q4H PRN NAUSEA AND/OR VOMITING Constitutional: Yes: Well Nourished Eyes: Yes: Conjunctiva Clear HENT: Yes: Atraumatic Neck: Yes: Supple Cardiovascular: Yes: Regular Rate and Rhythm Respiratory: Yes: CTA Bilaterally Gastrointestinal Inspection: Yes: WNL ...Auscultate: Yes: Hypoactive Bowel Sounds ...Palpate: Yes: Soft, Tenderness (mild epigastirc tenderness, no peritonal signs) ...Percussion: Yes: Tympanitic ...Rectal Exam: Yes: Guaiac Negative (soft brown guaiac negative stool) Edema: No Peripheral Pulses WNL: Yes Neurological: Yes: Alert, Oriented Labs: CBC, BMP 07/26/18 07:40 07/26/18 07:40 Imaging - Results X-ray: Image Reviewed (gallstone) Other: Report Reviewed (Hida scan negative) Problem List - Problems (1) Gastroenteritis Assessment/Plan: Suspect a resolving viral gastroenteritis as the cause of symptoms. The gallstone appear asymptomatic Code(s): K52.9 - NONINFECTIVE GASTROENTERITIS AND COLITIS, UNSPECIFIED (2) Diarrhea Code(s): R19.7 - DIARRHEA, UNSPECIFIED (3) Cholelithiasis Code(s): K80.20 - CALCULUS OF GALLBLADDER W/O CHOLECYSTITIS W/O OBSTRUCTION (4) Vomiting Code(s): R11.10 - VOMITING, UNSPECIFIED Qualifiers: Vomiting type: unspecified Vomiting Intractability: non-intractable Nausea presence: without nausea Qualified Code(s): R11.11 - Vomiting without nausea Assessment/Plan Impression: Gastroenteritis resolving Gallstones asymptomatic Plan: Trial of soft diet. If tolerated, can discharge Lactose free diet advised for the next 7 days
--- NOTE | 2018-07-26 14:59 | PN ---
Physical Exam: SUBJECTIVE: Patient seen and examined at bedside. Able to tolerate liquid diet but had some epigastric pain (like the pain she came in with) with eating. She was able to tolerate the full liquid diet but had non-bloody diarrhea following eating. She had some nausea but did not vomit. She denies any fevers, chills, CP , SOB. OBJECTIVE: Vital Signs Temperature 98.0 F 07/26/18 10:00 Pulse Rate 70 07/26/18 10:00 Respiratory Rate 18 07/26/18 12:00 Blood Pressure 98/57 L 07/26/18 10:00 O2 Sat by Pulse Oximetry (%) 100 07/26/18 12:00 GENERAL: The patient is awake, alert, and fully oriented, in no acute distress. EYES: extraocular movements intact, sclera anicteric, conjunctiva clear. ENT: Ears normal, nares patent NECK: Trachea midline, full range of motion. LUNGS: Breath sounds equal, clear to auscultation bilaterally HEART: Regular rate and rhythm, S1, S2. Systolic murmur best heard in pulmonic region. ABDOMEN: Soft, nontender, nondistended, normoactive bowel sounds. EXTREMITIES: warm, well-perfused, no edema. NEUROLOGICAL: Cranial nerves II through XII grossly intact. Normal speech, gait not observed. PSYCH: Normal mood, normal affect. SKIN: Warm, dry Laboratory Results - last 24 hr 07/25/18 07/25/18 07/26/18 06:08 20:35 07:40 WBC 4.9 RBC 4.01 Hgb 12.3 Hct 34.9 MCV 87.0 MCH 30.7 MCHC 35.3 RDW 13.3 Plt Count 239 MPV 8.2 Absolute Neuts (auto) 3.5 Neutrophils % 73.1 Lymphocytes % 19.3 D Monocytes % 6.7 D Eosinophils % 0.8 D Basophils % 0.1 Nucleated RBC % 0 Sodium Potassium Chloride Carbon Dioxide Anion Gap BUN Creatinine Creat Clearance w eGFR Random Glucose Calcium Phosphorus Magnesium Influenza A (Rapid) Negative Influenza B (Rapid) Negative Group A Strep Rapid Negative 07/26/18 07:40 WBC RBC Hgb Hct MCV MCH MCHC RDW Plt Count MPV Absolute Neuts (auto) Neutrophils % Lymphocytes % Monocytes % Eosinophils % Basophils % Nucleated RBC % Sodium 139 Potassium 3.8 Chloride 107 Carbon Dioxide 22 Anion Gap 9 BUN 8 Creatinine 0.6 Creat Clearance w eGFR > 60 Random Glucose 53 L Calcium 7.8 L Phosphorus 3.2 Magnesium 2.1 Influenza A (Rapid) Influenza B (Rapid) Group A Strep Rapid Active Medications Generic Name Dose Route Start Last Admin Trade Name Freq PRN Reason Stop Dose Admin Acetaminophen 1,000 mg 07/25/18 19:47 07/25/18 19:56 Ofirmev Injection - IVPB 1,000 mg Q6H PRN Administration PAIN LEVEL 6-10 Lactated Ringer's 1,000 mls @ 100 mls/hr 07/25/18 02:45 07/26/18 03:34 Lactated Ringers Solution IV Not Given ASDIR LINDA Famotidine/Sodium Chloride 20 mg in 50 mls @ 100 mls/hr 07/25/18 10:00 10:10 Pepcid 20 Mg Premixed Ivpb - IVPB 100 mls/hr DAILY LINDA Administration Ondansetron HCl 4 mg 07/25/18 03:38 Zofran Injection IVPUSH Q4H PRN NAUSEA AND/OR VOMITING Prochlorperazine Edisylate 10 mg 07/25/18 02:41 Compazine Injection - IVPB Q4H PRN NAUSEA AND/OR VOMITING ASSESSMENT/PLAN: 23 y/o F w/no PMH presents with N/V and abd pain. Being worked up for source of abd pain and N/V. -Abdominal pain and nausea and vomiting -secondary to gastroenteritis vs gastritis -HIDA scan done was negative -Tolerated full liquid diet today -Soft diet trial tonight without dairy/lactose -If she can tolerate soft diet, can be d/c'd tomorrow with lactose free diet for 7 days. -Will send with PPI and compazine on discharge -Heart murmur -Will need to f/u as outpatient -Dispo: Likely to be d/c'd tomorrow with lactose free diet tomorrow if tolerating soft diet tonight. Visit type - Emergency Visit Emergency Visit: Yes ED Registration Date: 07/25/18 Care time: The patient presented to the Emergency Department on the above date and was hospitalized for further evaluation of their emergent condition. - New Patient This patient is new to me today: Yes Date on this admission: 07/26/18 - Critical Care Critical Care patient: No
[2018-07-27] MEDS: LACTATED RINGERS SOLUTION 1,000 ML IV SCH (05:11)
[2018-07-27 07:06] LABS: BASO % 0.4 % (0-2.0); EOS % 1.4 % (0-4.5); HEMATOCRIT 32.2 % (32.4-45.2); HEMOGLOBIN 11.2 GM/dL (10.7-15.3); LYMPH % 38.8 % (8-40); MCH 29.6 pg (25.7-33.7); MCHC 34.9 g/dl (32.0-36.0); MEAN CELL VOLUME 84.8 fl (80-96); MEAN PLT VOLUME 7.7 fl (7.5-11.1); MONO % 12.9 % (3.8-10.2); NEUT % 46.5 % (42.8-82.8); PLATELET COUNT 244 K/MM3 (134-434); RDW 13.3 % (11.6-15.6); WHITE BLOOD COUNT 3.2 K/mm3 (4.0-10.0)
[2018-07-27 07:53] LABS: ALBUMIN 2.9 g/dl (3.4-5.0); ALK PHOS 43 U/L (45-117); ANION GAP 4 MMOL/L (8-16); BILIRUBIN,TOTAL 0.5 mg/dL (0.2-1); BLOOD UREA NITROGEN 5 mg/dL (7-18); CALCIUM 8.2 mg/dL (8.5-10.1); CHLORIDE 106 mmol/L (98-107); CO2 29 mmol/L (21-32); CREATININE 0.6 mg/dL (0.55-1.3); GLUCOSE,RANDOM 81 mg/dL (74-106); POTASSIUM 3.7 mmol/L (3.5-5.1); SGOT/AST 15 U/L (15-37); SGPT/ALT 24 U/L (13-61); SODIUM 139 mmol/L (136-145); TOT PROT 5.7 g/dl (6.4-8.2)
[2018-07-27] MEDS: ACETAMINOPHEN 1000 MG/100 ML VIAL (NON FORMULARY) IVPB PRN (08:34)
[2018-07-27] MEDS ORDERED: PT OWN MED DRAWER 7, Y5N ONE (08:36)
[2018-07-27] MEDS ORDERED: PROCHLORPERAZINE INJECTION 10 MG/2 ML VIAL IVPB PRN (08:42)
[2018-07-27] MEDS: FAMOTIDINE 20 MG/50 ML IVPB 20 MG/50 ML MG IVPB SCH (09:35)
--- NOTE | 2018-07-27 14:25 | PN ---
Progress Note (short form) - Note Progress Note: Subjective: no fever or chills . has abd pain, cont to have nausea. vomited with solid food last night and does not have any appetite for solids Objective: Vital Signs: Last Vital Signs Temp Pulse Resp BP Pulse Ox 97.9 F 65 18 118/60 98 07/27/18 10:00 07/27/18 10:00 07/27/18 12:00 07/27/18 10:00 07/27/18 12:00 Laboratory Results - last 24 hr 07/27/18 07/27/18 06:30 06:30 WBC 3.2 L RBC 3.80 Hgb 11.2 Hct 32.2 L MCV 84.8 MCH 29.6 MCHC 34.9 RDW 13.3 Plt Count 244 MPV 7.7 Absolute Neuts (auto) 1.5 Neutrophils % 46.5 D Lymphocytes % 38.8 D Monocytes % 12.9 H D Eosinophils % 1.4 Basophils % 0.4 D Nucleated RBC % 0 Sodium 139 Potassium 3.7 Chloride 106 Carbon Dioxide 29 Anion Gap 4 L BUN 5 L Creatinine 0.6 Creat Clearance w eGFR > 60 Random Glucose 81 Calcium 8.2 L Total Bilirubin 0.5 AST 15 ALT 24 Alkaline Phosphatase 43 L Total Protein 5.7 L Albumin 2.9 L Physical Exam: NAD, MMM, CV: RRR, 2/6 Sm at LUSb and RUSB. Lungs: CTAB Ext: no edema Abd: soft, ND, TTP in LUQ, RUQ, and epigastric area, with no rebound or guarding. Nl Bs. ASSESSMENT AND PLAN: 23 y/o lady with no sig PMH who presented with Abd pain and N/V. 1- Abd pain, N/V: ? gastroenteritis. vs gastritis. neg HIDA. Still has abd pain place back on clear liquid diet check Lipase to r/o pancreatitis add PPI add compazine for nausea , qtc 458 2- heart murmur. she will follow with her PCP at [facility] for an echo. dispo : HLOC due to inability to tolerate diet Visit type - Emergency Visit Emergency Visit: Yes ED Registration Date: 07/25/18 Care time: The patient presented to the Emergency Department on the above date and was hospitalized for further evaluation of their emergent condition. - New Patient This patient is new to me today: No - Critical Care Critical Care patient: No
[2018-07-27] MEDS: PANTOPRAZOLE 40 MG TABLET (FP) PO SCH (14:36)
[2018-07-27 14:43] LABS: LIPASE 141 U/L (73-393)
--- NOTE | 2018-07-27 17:42 | PN ---
GI Progress Note Subjective: GI NOte( covering Dr Ocampo): Unable to tolerate solids. Still having pain - Objective Vital Signs: Vital Signs Temperature 98.3 F 07/27/18 14:08 Pulse Rate 69 07/27/18 14:08 Respiratory Rate 18 07/27/18 14:08 Blood Pressure 93/59 L 07/27/18 14:08 O2 Sat by Pulse Oximetry (%) 98 07/27/18 12:00 Constitutional: Anxious ...Auscultate: Yes: Normoactive Bowel Sounds ...Palpate: Yes: Soft, Other (nontender) Labs: CBC, BMP 07/27/18 06:30 07/27/18 06:30 Assessment/Plan Impression: Gastroenteritis slow to resolve Gallstones asymptomatic Plan: Back to liquids May need EGD. Dr Ocampo will assume care tomorrow and make this decision Father expressed that he may want to take Nadira to [place] Problem List - Problems (1) Gastroenteritis Code(s): K52.9 - NONINFECTIVE GASTROENTERITIS AND COLITIS, UNSPECIFIED (2) Diarrhea Code(s): R19.7 - DIARRHEA, UNSPECIFIED (3) Cholelithiasis Code(s): K80.20 - CALCULUS OF GALLBLADDER W/O CHOLECYSTITIS W/O OBSTRUCTION (4) Vomiting Code(s): R11.10 - VOMITING, UNSPECIFIED Qualifiers: Vomiting type: unspecified Vomiting Intractability: non-intractable Nausea presence: without nausea Qualified Code(s): R11.11 - Vomiting without nausea
[2018-07-28] MEDS: LACTATED RINGERS SOLUTION 1,000 ML IV SCH ×2 (01:09→12:24)
[2018-07-28 07:19] LABS: BASO % 0.3 % (0-2.0); EOS % 0.9 % (0-4.5); HEMATOCRIT 32.8 % (32.4-45.2); HEMOGLOBIN 11.6 GM/dL (10.7-15.3); LYMPH % 39.6 % (8-40); MCHC 35.4 g/dl (32.0-36.0); MEAN CELL VOLUME 84.9 fl (80-96); MEAN PLT VOLUME 7.9 fl (7.5-11.1); NEUT % 48.2 % (42.8-82.8); PLATELET COUNT 249 K/MM3 (134-434); RBC 3.86 M/mm3 (3.60-5.2); RDW 13.3 % (11.6-15.6); WHITE BLOOD COUNT 3.5 K/mm3 (4.0-10.0)
[2018-07-28 07:31] LABS: MAGNESIUM 1.8 mg/dL (1.8-2.4); PHOSPHOROUS 4.2 mg/dL (2.5-4.9); POTASSIUM 3.7 mmol/L (3.5-5.1)
--- NOTE | 2018-07-28 08:39 | PN ---
GI Progress Note Subjective: Patient states feeling better. Denies abdominal pain, nausea, vomiting. Tolerating clear liquid diet. HIDA scan shows no scintigraphic evidence of of cystic duct obstruction. - Objective Vital Signs: Vital Signs Temperature 98.3 F 07/28/18 07:00 Pulse Rate 64 07/28/18 07:00 Respiratory Rate 18 07/28/18 07:00 Blood Pressure 101/49 L 07/28/18 07:00 O2 Sat by Pulse Oximetry (%) 98 07/27/18 12:00 Constitutional: Well Nourished, No Distress, Calm Eyes: Yes: Conjunctiva Clear Cardiovascular: Yes: Regular Rate and Rhythm Respiratory: Yes: Regular, CTA Bilaterally Gastrointestinal Inspection: Yes: WNL. No: Ascites, Distention, Hernia, Scars, Other ...Auscultate: Yes: Normoactive Bowel Sounds. No: Hyperactive Bowel Sounds, Hypoactive Bowel Sounds, No Bowel Sounds, Other ...Palpate: Yes: Soft, Tenderness (epigastric). No: Firm/Rigid, Guarding, Hepatomegaly, Mass, Pulsatile Mass, Splenomegaly, Tenderness, Epigastium, Tenderness, Rebound, Other ...Percussion: Yes: Tympanitic. No: Dullness, Fluid Wave, Other Neurological: Yes: Alert, Oriented Labs: CBC, BMP 07/28/18 06:05 07/28/18 06:05 Active Medications Generic Name Dose Route Start Last Admin Trade Name Freq PRN Reason Stop Dose Admin Acetaminophen 1,000 mg 07/25/18 19:47 07/27/18 08:34 Ofirmev Injection - IVPB 1,000 mg Q6H PRN Administration PAIN LEVEL 6-10 Lactated Ringer's 1,000 mls @ 100 mls/hr 07/25/18 02:45 07/28/18 01:09 Lactated Ringers Solution IV 100 mls/hr ASDIR LINDA Administration Famotidine/Sodium Chloride 20 mg in 50 mls @ 100 mls/hr 07/25/18 10:00 09:35 Pepcid 20 Mg Premixed Ivpb - IVPB 100 mls/hr DAILY LINDA Administration Pantoprazole Sodium 40 mg 07/27/18 14:30 07/27/18 14:36 Protonix - PO 40 mg DAILY LINDA Administration Prochlorperazine Edisylate 5 mg 07/27/18 08:42 Compazine Injection - IVPB Q6H PRN NAUSEA AND/OR VOMITING Problem List - Problems (1) Vomiting Assessment/Plan: >discontinued compazine IVPB, will start on Reglan 5mg PO TIDAC >will start on protonix 40mg PO daily > upgrade diet to low fiber, lactose free Code(s): R11.10 - VOMITING, UNSPECIFIED Qualifiers: Vomiting type: unspecified Vomiting Intractability: non-intractable Nausea presence: without nausea Qualified Code(s): R11.11 - Vomiting without nausea (2) Cholelithiasis Assessment/Plan: >will start on Levaquin 500mg PO daily and Flagyl 250mg PO TID >instructed to follow up in GI office for follow up Code(s): K80.20 - CALCULUS OF GALLBLADDER W/O CHOLECYSTITIS W/O OBSTRUCTION
[2018-07-28] MEDS ORDERED: PANTOPRAZOLE 40 MG TABLET (FP) PO SCH (10:00)
[2018-07-28] MEDS ORDERED: METOCLOPRAMIDE HCL 10 MG TABLET (FP) PO SCH (11:00)
[2018-07-28] MEDS: PANTOPRAZOLE 40 MG TABLET (FP) PO SCH (11:51)
--- NOTE | 2018-07-28 13:52 | PN ---
Teaching Attending Note Name of Resident: Suzy Brumfield ATTENDING PHYSICIAN STATEMENT I saw and evaluated the patient. I reviewed the resident's note and discussed the case with the resident. I agree with the resident's findings and plan as documented. SUBJECTIVE: No fever or chills. No abd pain. NO HERNANDEZ. NO SOB, no diarrhea. her nausea much improved and she did not vomit last ight or this am . OBJECTIVE: NAD, MMM, CV: RRR, 2/6 Sm at LUSB and RUSB. Lungs: CTAB Ext: no edema Abd: soft, ND, minimal discomfort in epigastric area. ASSESSMENT AND PLAN: 23 y/o lady with no sig PMH who presented with Abd pain and N/V. 1- Abd pain, N/V: probably viral gastroenteritis. gastritis is possible no evidence of cholecystitis advance diet cont PPI Gi recommended Abx, will d/w Dr. Ocampo the indication . 2- Heart murmur. she will follow with her PCP at [facility] for an echo. dispo : can dc home today. will have her f/u with GI and also for Echo
[2018-07-28] MEDS ORDERED: metroNIDAZOLE 250 MG TABLET PO SCH (14:00)
[2018-07-28 14:45] VITALS: BP 100/60; PULSE 69; TEMP 98
--- NOTE | 2018-07-28 17:51 | DS ---
Physical Exam: SUBJECTIVE: Patient seen and examined at bedside- no acute events overnight' patient tolerated her diet and is no longer having abominal pain/nausea or vomiting. her HIDA scan showed no evidence of cystic duct obstruction OBJECTIVE: Vital Signs Period Temp Pulse Resp BP Sys/Jansen Pulse Ox Last 24 Hr 98 F-98.8 F 64-69 18-18 97-101/49-63 PHYSICAL EXAM GENERAL: The patient is awake, alert, and fully oriented, in no acute distress. EYES:PEERLA; EOMI; no scleral icterus. NECK: no JVD; no lymphadenopathy LUNGS: CTA B/L; no rales, rhonchi or wheezing HEART: Regular rate and rhythm, S1, S2 without murmur, rub or gallop. ABDOMEN: Soft, nontender, nondistended, normoactive bowel sounds, no guarding, no rebound, no hepatosplenomegaly, no masses. EXTREMITIES: 2+ pulses, warm, well-perfused, no edema. NEUROLOGICAL: Cranial nerves II through XII grossly intact. Normal speech, gait not observed. PSYCH: Normal mood, normal affect. SKIN: Warm, dry, normal turgor, no rashes or lesions noted. LABS Laboratory Results - last 24 hr 07/28/18 07/28/18 06:05 06:05 WBC 3.5 L RBC 3.86 Hgb 11.6 Hct 32.8 MCV 84.9 MCH 30.0 MCHC 35.4 RDW 13.3 Plt Count 249 MPV 7.9 Absolute Neuts (auto) 1.7 Neutrophils % 48.2 Lymphocytes % 39.6 Monocytes % 11.0 H Eosinophils % 0.9 Basophils % 0.3 Nucleated RBC % 0 Potassium 3.7 Phosphorus 4.2 Magnesium 1.8 imagingL ultrasound: cholethiasis HIDA scan: no evidence of cystic duct obstruction HOSPITAL COURSE: Date of Admission:07/27/18 23 y/o female with no PMH presented to the ED with a multiple day history of n/ v abdominal pain. patient had multiple episodes of diarrhea and 2 episodes of vomiting- she was not able to tolerate PO so she came into the hospital. an ultrasound was done of her abdomen which showed evidence of cholethiasis but no acute evidence of cholecystitis. patient was started on IVF, given zofran and protonix. she was unable to tolerate liquids- she underwent a HIDA scan which showed no evidence of cystic duct obstruction. her diet was advanced and she was d/c'd home on a 1 week course of levaquin and flagyl, in addition, to famotidine with strict GI follow up within one week. Date of Discharge: 07/28/18 Minutes to complete discharge: 39 Discharge Summary Reason For Visit: VOMITING Condition: Improved - Instructions Diet, Activity, Other Instructions: You were treated for viral gastroenteritis in addition were also found to have gallstones on an ultrasound, with possible chronic inflammation of your gallbladder. Please resume all of your home medications in addition: Please take the antibiotic Flagyl 250mg three times a day for one week Please take the antibiotic Levaquin 500mg once a day for one week Please take pepcid 20mg daily Please take compazine for nausea - Please take a lactose free, fiber diet for a week after discharge Please follow up with Dr. Ocampo, within one week For your gallstones, please follow up with Dr. Perez, the surgeon for evaluation - You have a heart murmur. you need an echo done. please talk to your primary doctor, if he does not feel comfortable ordering the echo, please see Dr. garcia from cardiology. *if you begin to experience worsening abdominal pains, chest pains, shortness of breath, fevers, please return to the emergency room immediately avoid anti-nausea medications such as zofran or reglan as you had a prolongation of one of your heart cycles Referrals: Darius Perez MD [Staff Physician] - 1 Week Damien Ocampo MD [Staff Physician] - 1 Week Magdaleno Ordonez MD [Primary Care Provider] - 1 Week Davide Garcia MD [Staff Physician] - Disposition: HOME - Home Medications Comprehensive Discharge Medication List: Ambulatory Orders Famotidine [Pepcid] 20 mg PO DAILY PRN #30 tablet 07/24/18 Prochlorperazine Maleate [Compazine] 5 mg PO Q8H PRN #10 tablet 07/27/18 Pantoprazole Sodium [Protonix] 40 mg PO DAILY #14 tablet. 07/28/18 levoFLOXacin [Levaquin -] 500 mg PO DAILY #7 tablet 07/28/18 metroNIDAZOLE [Flagyl -] 250 mg PO TID 7 Days #21 tablet 07/28/18 Problem List - Problems (1) Vomiting Code(s): R11.10 - VOMITING, UNSPECIFIED Qualifiers: Vomiting type: unspecified Vomiting Intractability: non-intractable Nausea presence: without nausea Qualified Code(s): R11.11 - Vomiting without nausea (2) Cholelithiasis Code(s): K80.20 - CALCULUS OF GALLBLADDER W/O CHOLECYSTITIS W/O OBSTRUCTION This patient is new to me today: No Emergency Visit: Yes ED Registration Date: 07/27/18 Care time: The patient presented to the Emergency Department on the above date and was hospitalized for further evaluation of their emergent condition. Critical Care patient: No - Discharge Referral Referred to [facility] No
== END 2018-07-28 16:31 | disposition home or self-care (01) | DRG 249 ==
LOC: JER 22:59 → JERBED 07-25 02:27 → J5S 07-25 06:47 → MERGE 07-27 14:25 → OBSVTOIN 07-27 14:25
PROVIDERS: ADMIT Internal Medicine; ATTEND Internal Medicine
DX: A08.4 Viral intestinal infection, unspecified (principal); K80.20 Calculus of gallbladder without cholecystitis without obstruction; R10.9 Unspecified abdominal pain; R11.2 Nausea with vomiting, unspecified
CPT/HCPCS: 36415; 78226-TC; 80048; 80053; 80307; 83690; 83735; 84100; 84132; 85025; 87070; 87804; 87880; 93005; 93010; 99284-25; A9537; G0378; J0131; J7030

== ENCOUNTER 2019-08-04 12:04 | Emergency (ER) | payer OTHER ==
[2019-08-04 12:20] VITALS: BMI 26.0
[2019-08-04] MEDS ORDERED: ONDANSETRON 4 MG/2 ML VIAL IVPUSH ONE (12:20)
[2019-08-04] MEDS ORDERED: SODIUM CHLORIDE 1,000 ML IV STA (12:20)
--- NOTE | 2019-08-04 12:20 | PDOC ---
Rapid Medical Evaluation Time Seen by Provider: 08/04/19 12:09 Medical Evaluation: Allergies Allergy/AdvReac Type Severity Reaction Status Date / Time No Known Allergies Allergy Verified 07/24/18 13:04 08/04/19 12:18 CC: RUQ pain with vomiting; h/o gallstones PE: RUQ tenderness. +Menon's Orders: labs, sono, urine Patient will proceed to ED for further evaluation. Discharge Disposition - Diagnosis RUQ abdominal pain - Referrals - Patient Instructions - Post Discharge Activity
[2019-08-04] MEDS ORDERED: ACETAMINOPHEN 1000 MG/100 ML VIAL (NON FORMULARY) IVPB ONE (12:21)
[2019-08-04 13:06] LABS: BASO % 0.2 % (0-2.0); EOS % 0.2 % (0-4.5); HEMATOCRIT 42.6 % (32.4-45.2); LYMPH % 19.6 % (8-40); MCH 28.7 pg (25.7-33.7); MCHC 32.9 g/dl (32.0-36.0); MEAN CELL VOLUME 87.1 fl (80-96); MEAN PLT VOLUME 7.7 fl (7.5-11.1); MONO % 5.6 % (3.8-10.2); NEUT % 74.4 % (42.8-82.8); PLATELET COUNT 367 K/MM3 (134-434); RBC 4.89 M/mm3 (3.60-5.2); RDW 14.1 % (11.6-15.6); WHITE BLOOD COUNT 7.2 K/mm3 (4.0-10.0)
--- NOTE | 2019-08-04 13:10 | PDOC ---
History of Present Illness - General Chief Complaint: Pain, Acute Stated Complaint: STOMACH/VOMITING Time Seen by Provider: 08/04/19 12:09 History Source: Patient Exam Limitations: No Limitations - History of Present Illness Initial Comments: 08/04/19 13:07 Patient is a 24-year-old female who presents to the ED with right upper quadrant abdominal pain that started yesterday. She states that she came home from the [facility] early this morning and was already having the pain. She does admit to eating a very fatty and rich meal prior to leaving the [facility]. She does admit to several episodes of nonbloody/nonbilious vomiting. She denies any diarrhea. She states the pain feels similar to when she was diagnosed with gallstones last year. She states she was admitted to the hospital for 1 week and was discharged. She never followed up with general surgery for her gallstones. She denies any fevers or chills. She states the pain is intermittent and sharp in nature. It starts in her right upper quadrant and radiates to her back. She denies other medical history. She denies any allergies to medications. Past History - Past Medical History Allergies/Adverse Reactions: Allergies Allergy/AdvReac Type Severity Reaction Status Date / Time No Known Allergies Allergy Verified 08/04/19 12:20 Home Medications: Ambulatory Orders NK [No Known Home Medication] 08/04/19 Anemia: No Asthma: No Cancer: No Cardiac Disorders: No COPD: No Diabetes: No HTN: No Seizures: No Thyroid Disease: No - Surgical History Abdominal Surgery: No Appendectomy: No Cardiac Surgery: No Gastric Stapling: No - Immunization History Td Vaccination: Yes Immunization Up to Date: Yes - Psycho Social/Smoking Cessation Hx Smoking Status: No Smoking History: Never smoked Have you smoked in the past 12 months: No Number of Cigarettes Smoked Daily: 0 Hx Alcohol Use: No Drug/Substance Use Hx: No Substance Use Type: None Hx Substance Use Treatment: No Review of Systems - Review of Systems Comments:: 08/04/19 13:08 - Review of Systems Able to Perform ROS?: Yes Constitutional: No: Fever, Chills, Loss of Appetite, Night Sweats, Weakness HEENTM: No: Eye Pain, Vision changes, Ear Pain, Throat Pain, Throat Swelling, Mouth Pain, Difficulty Swallowing Respiratory: No: Cough, Shortness of Breath, Wheezing, Sputum Production Cardiac (ROS): No: Chest Pain, Chest Tightness, Palpitations, Irregular Heart Beat, Edema ABD/GI: No: Diarrhea; Positive: RUQ abdominal pain, nausea, vomiting : No Dysuria, No Hematuria, No Frequency, No Urgency Musculoskeletal: No: Muscle Pain, Back Pain, Joint Pain, Muscle Weakness, Neck Pain Integumentary: No: Lesions, Rash Neurological: No: Headache, Numbness, Tingling, Weakness, Speech Difficulties *Physical Exam - Vital Signs Last Vital Signs Temp Pulse Resp BP Pulse Ox 97.9 F 71 16 105/66 100 08/04/19 12:18 08/04/19 12:18 08/04/19 12:18 08/04/19 12:18 08/04/19 12:18 - Physical Exam 08/04/19 13:08 - Physical Exam General Appearance: Nourished, Appropriately Dressed, No Distress HEENT: EOMI, Normal Voice, No Muffled/Hoarse voice, No Nasal Congestion, No Rhinorrhea, Hearing Grossly Normal Neck: Supple, No Lymphadenopathy (R), No Lymphadenopathy (L), No Rigidity, No Decreased range of motion Respiratory/Chest: Lungs Clear, Normal Breath Sounds. No Respiratory Distress, No Accessory Muscle Use Cardiovascular: Regular Rhythm, Regular Rate, S1, S2 Gastrointestinal/Abdominal: Normal Bowel Sounds, Soft. No Rebound, No Rigidity. Right upper quadrant abdominal tenderness to palpation. Positive Menon sign. No CVA tenderness bilaterally. Abdomen soft and without rigidity. Positive voluntary guarding. Musculoskeletal: Normal Inspection. No Decreased Range of Motion Extremity: Normal Capillary Refill, Normal Inspection Integumentary: Normal Color, Dry. No Rash Neurologic: maintenance team leader II-XII NML intact, Fully Oriented, Alert, Normal Mood/Affect, Normal Response ED Treatment Course - LABORATORY CBC & Chemistry Diagram: 08/04/19 12:20 08/04/19 12:20 Medical Decision Making - Medical Decision Making 08/04/19 13:09 Assessment: Patient is a 24-year-old female with right upper quadrant abdominal pain and history of gallstones. She is likely having biliary colic. Plan: -Saline lock with IV fluids ordered -Labs ordered -Right upper quadrant ultrasound ordered -Tylenol IV ordered -Will reassess 08/04/19 15:32 Patient has been made aware that she was found to have cholelithiasis on ultrasound without evidence of cholecystitis. She was given pain medication and Zofran and is beginning to feel a little bit better. We will p.o. challenge her. If the patient is able to tolerate p.o. fluids we will discharge her with follow-up to surgery for repeat evaluation and possible elective cholecystectomy. 08/04/19 16:00 The patient tolerated fluids in the ED without difficulty. She states she is feeling much better. We will have her follow-up with general surgery as an outpatient for further evaluation and treatment and possible elective cholecystectomy. She has been given strict return precautions such as high fevers, shaking chills, profuse vomiting, worsening abdominal pain or any other worsening symptoms. She understands and agrees with this treatment plan and she is stable for discharge. Discharge - Discharge Information Problems reviewed: Yes Clinical Impression/Diagnosis: RUQ abdominal pain Cholelithiasis Qualifiers: Cholelithiasis location: gallbladder Cholecystitis presence: without cholecystitis Biliary obstruction: without biliary obstruction Qualified Code(s) : K80.20 - Calculus of gallbladder without cholecystitis without obstruction Condition: Stable Disposition: HOME - Follow up/Referral Referrals: Magdaleno Ordonez MD [Primary Care Provider] - Darius Perez MD [Staff Physician] - 2 Days - Patient Discharge Instructions Patient Printed Discharge Instructions: DI for Gallstones Additional Instructions: Avoid eating fatty, fried, greasy, heavy meals as this will cause you to have more gallbladder pain. Drink plenty of fluids and eat a low-fat diet. Get plenty of rest. Follow-up with general surgery for further evaluation and treatment within 1 week. Return to the emergency department for high fevers, shaking chills, profuse vomiting, worsening abdominal pain or any other worsening symptoms. - Post Discharge Activity Work/Back to School Note: Back to Work
[2019-08-04 13:42] LABS: ALBUMIN 4.2 g/dl (3.4-5.0); BILIRUBIN,TOTAL 0.6 mg/dL (0.2-1); BLOOD UREA NITROGEN 12.4 mg/dL (7-18); CALCIUM 9.4 mg/dL (8.5-10.1); CREATININE 0.7 mg/dL (0.55-1.3); POTASSIUM 4.3 mmol/L (3.5-5.1); TOT PROT 7.8 g/dl (6.4-8.2)
[2019-08-04 14:15] LABS: PH,URINE 5.5 (5.0-8.0); URINE APPEARANCE CLEAR; URINE BILIRUBIN NEGATIVE (NEGATIVE); URINE COLOR YELLOW; URINE GLUCOSE (UA) NEGATIVE (NEGATIVE); URINE KETONE NEGATIVE (NEGATIVE); URINE LEUK ESTERASE NEGATIVE (NEGATIVE); URINE NITRITE NEGATIVE (NEGATIVE); URINE PROTEIN NEGATIVE (NEGATIVE); URINE UROBILINOGEN 0.2 mg/dL (0.2-1.0)
[2019-08-04 14:16] LABS: EPI CELLS 0.9 /HPF (0-5/HPF); HYALINE CASTS 0 /lpf (0-8); URINE BACTERIA 10.5 /hpf (NEGATIVE); URINE RBC 0 /hpf (0-4); URINE WBC 0 /hpf (0-5)
[2019-08-04] MEDS ORDERED: ACETAMINOPHEN INJECTION 100 ML IVPB ONE (14:39)
[2019-08-04] MEDS ORDERED: ONDANSETRON 4 MG/2 ML VIAL ONE (14:40)
[2019-08-04 16:03] VITALS: BP 110/67; PULSE 87; TEMP 98.2
== END 2019-08-04 16:07 | disposition home or self-care (01) ==
LOC: JER 12:04
PROC: 3E033GC Introduction of Other Therapeutic Substance into Peripheral Vein, Percutaneous Approach (ICD-10-PCS; principal; 2019-08-04)
PROC: 3E033NZ Introduction of Analgesics, Hypnotics, Sedatives into Peripheral Vein, Percutaneous Approach (ICD-10-PCS; 2019-08-04)
DX: K80.20 Calculus of gallbladder without cholecystitis without obstruction (principal)
CPT/HCPCS: 36415; 76705-TC; 80053; 81003; 83690; 84703; 85025; 87086; 99285-25; J0131; J7030

== ENCOUNTER 2022-10-07 23:01 | Emergency (ER) | payer OTHER ==
[2022-10-07 23:16] VITALS: PULSE 72; TEMP 97.9; BMI 26.2
[2022-10-08] MEDS ORDERED: ACETAMINOPHEN 1000 MG/100 ML BAG IVPB ONE (01:00)
[2022-10-08 01:06] LABS: URINE APPEARANCE CLEAR; URINE BILIRUBIN NEGATIVE (NEGATIVE); URINE COLOR YELLOW; URINE GLUCOSE (UA) NEGATIVE (NEGATIVE); URINE KETONE TRACE (NEGATIVE); URINE LEUK ESTERASE NEGATIVE (NEGATIVE); URINE NITRITE NEGATIVE (NEGATIVE); URINE PROTEIN TRACE (NEGATIVE)
[2022-10-08 01:07] LABS: HCG,QUALITATIVE URINE Negative
[2022-10-08] MEDS ORDERED: ACETAMINOPHEN INJECTION 100 ML IVPB ONE (01:11)
[2022-10-08 01:13] LABS: BASO % 0.3 % (0-2.0); EOS % 6.8 % (0-4.5); HEMATOCRIT 33.8 % (32.4-45.2); HEMOGLOBIN 11.6 GM/dL (10.7-15.3); LYMPH % 25.1 % (8-40); MCH 28.7 pg (25.7-33.7); MCHC 34.4 g/dl (32.0-36.0); MEAN CELL VOLUME 83.4 fl (80-96); MEAN PLT VOLUME 8.2 fl (7.5-11.1); NEUT % 57.8 % (42.8-82.8); PLATELET COUNT 257 10^3/uL (134-434); RBC 4.05 M/mm3 (3.60-5.2); RDW 13.3 % (11.6-15.6); WHITE BLOOD COUNT 6.7 K/mm3 (4.0-10.0)
[2022-10-08 01:33] LABS: POTASSIUM 4.1 mmol/L (3.5-5.1)
[2022-10-08 01:35] LABS: ALBUMIN 3.4 g/dl (3.4-5.0); BLOOD UREA NITROGEN 11.1 mg/dL (7-18)
[2022-10-08 01:38] LABS: CREATININE 0.8 mg/dL (0.55-1.3)
[2022-10-08 01:40] LABS: BILIRUBIN,TOTAL 0.4 mg/dL (0.2-1); TOT PROT 6.9 g/dl (6.4-8.2)
[2022-10-08] MEDS ORDERED: IBUPROFEN 400 MG TABLET (FP) PO ONE ×2 (06:10→06:26)
[2022-10-08 07:28] VITALS: BP 89/60; RESP 18
== END 2022-10-08 07:30 | disposition home or self-care (01) ==
LOC: JER 23:01
PROC: 3E033NZ Introduction of Analgesics, Hypnotics, Sedatives into Peripheral Vein, Percutaneous Approach (ICD-10-PCS; principal; 2022-10-07)
DX: R10.13 Epigastric pain (principal)
CPT/HCPCS: 36415; 74177-TC; 80053; 81003; 83690; 84703; 85025; 87086; 99285-25; Q9967

== ENCOUNTER 2023-01-30 05:35 | Inpatient (IN) | payer OTHER ==
[2023-01-30] MEDS ORDERED: ONDANSETRON 4 MG/2 ML VIAL IVPUSH ONE (05:58)
[2023-01-30] MEDS ORDERED: ACETAMINOPHEN 1000 MG/100 ML BAG IVPB ONE (05:58)
[2023-01-30] MEDS ORDERED: SODIUM CHLORIDE 0.9% 500 ML INFUS.BAG IV ONE (05:58)
[2023-01-30] MEDS ORDERED: FAMOTIDINE 20 MG/50 ML IVPB 20 MG/50 ML MG IVPB ONE ×2 (06:00→06:08)
[2023-01-30] MEDS ORDERED: ACETAMINOPHEN INJECTION 100 ML IVPB ONE ×2 (06:07→18:40)
[2023-01-30] MEDS ORDERED: ONDANSETRON 4 MG/2 ML VIAL ONE (06:07)
[2023-01-30 06:43] LABS: BASO % 0.4 % (0-2.0); HEMATOCRIT 33.7 % (32.4-45.2); HEMOGLOBIN 11.4 GM/dL (10.7-15.3); LYMPH % 17.6 % (8-40); MCH 28.7 pg (25.7-33.7); MCHC 33.7 g/dl (32.0-36.0); MEAN CELL VOLUME 85.2 fl (80-96); MEAN PLT VOLUME 8.1 fl (7.5-11.1); MONO % 6.9 % (3.8-10.2); NEUT % 74.1 % (42.8-82.8); PLATELET COUNT 271 10^3/uL (134-434); RBC 3.96 M/mm3 (3.60-5.2); RDW 14.1 % (11.6-15.6); WHITE BLOOD COUNT 7.8 K/mm3 (4.0-10.0)
[2023-01-30 06:44] LABS: HCG,QUALITATIVE URINE Positive
[2023-01-30 06:53] LABS: CALCIUM 7.9 mg/dL (8.5-10.1)
[2023-01-30 06:54] LABS: ALBUMIN 3.1 g/dl (3.4-5.0); BLOOD UREA NITROGEN 9.4 mg/dL (7-18)
[2023-01-30 06:57] LABS: CREATININE 0.6 mg/dL (0.55-1.3)
[2023-01-30 06:58] LABS: BILIRUBIN,TOTAL 0.4 mg/dL (0.2-1); TOT PROT 6.5 g/dl (6.4-8.2)
[2023-01-30] MEDS ORDERED: LACTATED RINGERS SOLUTION 1,000 ML/1,000 ML INFUS.BAG IV STA (07:15)
[2023-01-30 08:10] LABS: EPI CELLS >36 /uL (0-25.1); HYALINE CASTS 0 /uL (0-3.1); URINE APPEARANCE CLEAR; URINE BACTERIA 1279 /uL (0-1359); URINE BILIRUBIN NEGATIVE (NEGATIVE); URINE COLOR YELLOW; URINE GLUCOSE (UA) NEGATIVE (NEGATIVE); URINE KETONE NEGATIVE (NEGATIVE); URINE LEUK ESTERASE 1+ (NEGATIVE); URINE NITRITE NEGATIVE (NEGATIVE); URINE PROTEIN NEGATIVE (NEGATIVE); URINE RBC 10 /uL (0-23.9); URINE UROBILINOGEN 0.2 mg/dL (0.2-1.0); URINE WBC 35 /uL (0-25.8)
[2023-01-30] MEDS ORDERED: DEXTROSE 5%-LACTATED RINGERS 1,000 ML IV SCH ×2 (09:45→10:39)
[2023-01-30 10:03] LABS: URINE CRYSTALS NEGATIVE /hpf
[2023-01-30] MEDS ORDERED: ONDANSETRON 4 MG/2 ML VIAL IVPUSH PRN (11:02)
[2023-01-30] MEDS ORDERED: ACETAMINOPHEN 1000 MG/100 ML BAG IVPB PRN (11:02)
[2023-01-30] MEDS ORDERED: LACTATED RINGERS SOLUTION 1,000 ML/1,000 ML INFUS.BAG IV SCH (11:15)
[2023-01-30] MEDS: DEXTROSE 5%-LACTATED RINGERS 1,000 ML IV SCH (11:58)
[2023-01-30 12:58] LABS: INR 1.08 (0.83-1.09); PROTHROMBIN TIME (PATIENT) 12.5 SEC (9.7-13.0)
[2023-01-30 13:33] LABS: POTASSIUM 3.4 mmol/L (3.5-5.1)
[2023-01-30 13:37] LABS: CALCIUM 7.9 mg/dL (8.5-10.1)
[2023-01-30 13:39] LABS: ALBUMIN 2.7 g/dl (3.4-5.0)
[2023-01-30 13:41] LABS: CREATININE 0.5 mg/dL (0.55-1.3)
[2023-01-30 13:42] LABS: BILIRUBIN,TOTAL 0.4 mg/dL (0.2-1); TOT PROT 5.5 g/dl (6.4-8.2)
[2023-01-30] MEDS ORDERED: POTASSIUM CHLORIDE ORAL LIQUID 20 MEQ/15 ML PO ONE (16:43)
[2023-01-30] MEDS ORDERED: POTASSIUM CHLORIDE ORAL LIQUID 20 MEQ/15 ML ONE (17:11)
[2023-01-30 23:45] VITALS: BMI 28.1
[2023-01-31 07:24] LABS: BASO % 0.5 % (0-2.0); EOS % 1.1 % (0-4.5); HEMATOCRIT 30.5 % (32.4-45.2); HEMOGLOBIN 10.5 GM/dL (10.7-15.3); LYMPH % 23.2 % (8-40); MCH 29.2 pg (25.7-33.7); MCHC 34.3 g/dl (32.0-36.0); MEAN CELL VOLUME 85.3 fl (80-96); MONO % 6.9 % (3.8-10.2); NEUT % 68.3 % (42.8-82.8); PLATELET COUNT 254 10^3/uL (134-434); RBC 3.58 M/mm3 (3.60-5.2); RDW 14.1 % (11.6-15.6); WHITE BLOOD COUNT 6.3 K/mm3 (4.0-10.0)
[2023-01-31 07:28] LABS: POTASSIUM 3.7 mmol/L (3.5-5.1)
[2023-01-31 07:31] LABS: CALCIUM 8.3 mg/dL (8.5-10.1)
[2023-01-31 07:32] LABS: ALBUMIN 2.8 g/dl (3.4-5.0); BLOOD UREA NITROGEN 3.3 mg/dL (7-18)
[2023-01-31 07:35] LABS: CREATININE 0.5 mg/dL (0.55-1.3)
[2023-01-31 07:36] LABS: BILIRUBIN,TOTAL 0.6 mg/dL (0.2-1); TOT PROT 5.8 g/dl (6.4-8.2)
[2023-01-31] MEDS: PRENATAL VITAMINS W/ FOLIC ACID TABLET (FP) PO SCH (17:17)
[2023-01-31] MEDS: DEXTROSE 5%-LACTATED RINGERS 1,000 ML IV SCH (17:17)
[2023-02-01] MEDS: DEXTROSE 5%-LACTATED RINGERS 1,000 ML IV SCH (04:07)
[2023-02-01] MEDS: PRENATAL VITAMINS W/ FOLIC ACID TABLET (FP) PO SCH (10:24)
[2023-02-01 10:25] VITALS: BP 99/54; PULSE 65; RESP 18; TEMP 98.2
[2023-02-01 11:55] LABS: BASO % 0.3 % (0-2.0); EOS % 0.4 % (0-4.5); HEMATOCRIT 30.7 % (32.4-45.2); HEMOGLOBIN 10.5 GM/dL (10.7-15.3); LYMPH % 14.4 % (8-40); MCH 28.5 pg (25.7-33.7); MCHC 34.1 g/dl (32.0-36.0); MEAN CELL VOLUME 83.7 fl (80-96); MEAN PLT VOLUME 7.6 fl (7.5-11.1); MONO % 6.3 % (3.8-10.2); NEUT % 78.6 % (42.8-82.8); PLATELET COUNT 233 10^3/uL (134-434); RBC 3.67 M/mm3 (3.60-5.2); WHITE BLOOD COUNT 6.5 K/mm3 (4.0-10.0)
[2023-02-01 12:22] LABS: POTASSIUM 3.8 mmol/L (3.5-5.1)
[2023-02-01 12:24] LABS: CALCIUM 8.4 mg/dL (8.5-10.1)
[2023-02-01 12:27] LABS: CREATININE 0.5 mg/dL (0.55-1.3)
[2023-02-01 12:29] LABS: BILIRUBIN,TOTAL 0.6 mg/dL (0.2-1); TOT PROT 6.2 g/dl (6.4-8.2)
== END 2023-02-01 13:09 | disposition home or self-care (01) | DRG 833 ==
LOC: JER 05:35 → JERBED 10:10 → J7W 20:29
PROVIDERS: ADMIT Internal Medicine; ATTEND Nurse Practitioner Family
DX: O99.612 Diseases of the digestive system complicating pregnancy, second trimester (principal); O26.612 Liver and biliary tract disorders in pregnancy, second trimester; K80.20 Calculus of gallbladder without cholecystitis without obstruction; Z3A.14 14 weeks gestation of pregnancy
CPT/HCPCS: 36415; 74181-TC; 76705-TC; 76801-TC; 80053; 80061; 81003; 82150; 83690; 84702; 84703; 85025; 85610; 86140; 99285-25

== ENCOUNTER 2023-07-31 18:38 | Inpatient (IN) | payer OTHER ==
[2023-07-31 21:03] LABS: BASO % 0.2 % (0-2.0); EOS % 0.2 % (0-4.5); HEMATOCRIT 36.4 % (32.4-45.2); HEMOGLOBIN 12.3 GM/dL (10.7-15.3); LYMPH % 11.8 % (8-40); MCH 29.3 pg (25.7-33.7); MCHC 33.8 g/dl (32.0-36.0); MEAN CELL VOLUME 86.7 fl (80-96); MEAN PLT VOLUME 7.9 fl (7.5-11.1); MONO % 5.5 % (3.8-10.2); NEUT % 82.3 % (42.8-82.8); PLATELET COUNT 283 10^3/uL (134-434); RDW 14.2 % (11.6-15.6); WHITE BLOOD COUNT 12.3 K/mm3 (4.0-10.0)
[2023-07-31 21:09] LABS: INR 1.03 (0.83-1.09); PROTHROMBIN TIME (PATIENT) 11.9 SEC (9.7-13.0)
[2023-07-31 21:12] LABS: ACTIVATED PTT 27.7 SECONDS (25.2-36.5)
[2023-07-31 21:31] LABS: POTASSIUM 3.6 mmol/L (3.5-5.1)
[2023-07-31 21:33] LABS: BLOOD UREA NITROGEN 10.9 mg/dL (7-18)
[2023-07-31 21:37] LABS: CREATININE 0.7 mg/dL (0.55-1.3)
[2023-07-31] MEDS: ELECTROLYTE-148 SOLN 500 ML IV SCH (21:55)
[2023-07-31] MEDS: ELECTROLYTE-148 SOLN 1,000 ML IV SCH (22:55)
[2023-08-01 00:05] VITALS: BMI 35.5
[2023-08-01] MEDS ORDERED: FENTANYL/BUPIVACAINE/NS/PF - PCEA - 50 ML DISP.SYRIN EP ONE ×4 (00:07→09:16)
[2023-08-01] MEDS: FENTANYL/BUPIVACAINE/NS/PF - PCEA - 50 ML DISP.SYRIN EP SCH (00:50)
[2023-08-01] MEDS ORDERED: NALOXONE HCL 0.4 MG/ML VIAL IVPUSH PRN (01:31)
[2023-08-01] MEDS ORDERED: ACETAMINOPHEN 325 MG TABLET (FP) ONE (06:01)
[2023-08-01] MEDS: ACETAMINOPHEN 325 MG TABLET (FP) PO ONE (06:05)
[2023-08-01] MEDS ORDERED: BUPIVACAINE HCL/PF 0.25% (2.5MG/ML) 10 ML VIAL ONE (08:51)
[2023-08-01] MEDS: OXYTOCIN 30 UNITS in 0.9% NS 30 UNIT/500 ML INFUS.BAG IVPB SCH (09:30)
[2023-08-01] MEDS ORDERED: LIDOCAINE HCL 1% PRESERVATIVE FREE - 30ML VIAL ONE (10:21)
[2023-08-01] MEDS ORDERED: OXYTOCIN 20 UNITS in 0.9% NS 20 UNIT/1,000 ML INFUS.BAG IV ONE (10:21)
[2023-08-01] MEDS ORDERED: oxyCODONE HCL 5 MG TABLET PO PRN (10:36)
[2023-08-01] MEDS ORDERED: WITCH HAZEL 50% (TUCKS) 40 PAD/JAR PAD TP PRN (10:36)
[2023-08-01] MEDS ORDERED: ACETAMINOPHEN 325 MG TABLET (FP) PO PRN (10:36)
[2023-08-01] MEDS ORDERED: BISACODYL 10 MG SUPP.RECT RC PRN (10:36)
[2023-08-01] MEDS ORDERED: BENZOCAINE 28 GM HEMORRHOIDAL OINTMENT TP PRN (10:36)
[2023-08-01] MEDS ORDERED: METHYLERGONOVINE MALEATE 0.2 MG/1 ML AMP IM PRN (10:36)
[2023-08-01] MEDS ORDERED: OXYTOCIN 20 UNITS in 0.9% NS 20 UNIT/1,000 ML INFUS.BAG IV SCH (10:45)
[2023-08-01 12:56] LABS: CORD BASE EXCESS -9.4 mmol/L (0-2); CORD HCO3 19.2 mmHg (20-29); CORD PCO2 51.6 mmHg (30-78); CORD pH 7.189 (7.14-7.44)
[2023-08-01 13:01] LABS: CORD BASE EXCESS -13.4 mmol/L (0-2); CORD HCO3 15.8 mmHg (20-29); CORD PCO2 47.9 mmHg (30-78); CORD pH 7.135 (7.14-7.44)
[2023-08-01] MEDS: BENZOCAINE 20% 57 GM BOTTLE TP PRN (14:41)
[2023-08-02 08:12] LABS: BASO % 0.3 % (0-2.0); EOS % 0.6 % (0-4.5); HEMATOCRIT 33.6 % (32.4-45.2); HEMOGLOBIN 11.3 GM/dL (10.7-15.3); LYMPH % 14.9 % (8-40); MCH 29.5 pg (25.7-33.7); MCHC 33.6 g/dl (32.0-36.0); MEAN CELL VOLUME 87.9 fl (80-96); MEAN PLT VOLUME 7.4 fl (7.5-11.1); MONO % 6.6 % (3.8-10.2); NEUT % 77.6 % (42.8-82.8); PLATELET COUNT 257 10^3/uL (134-434); RBC 3.83 M/mm3 (3.60-5.2); RDW 13.9 % (11.6-15.6); WHITE BLOOD COUNT 14.1 K/mm3 (4.0-10.0)
[2023-08-02] MEDS: IBUPROFEN 600 MG TABLET (FP) PO PRN (10:49)
[2023-08-03] MEDS: SENNOSIDES/DOCUSATE COMBO (SENNA PLUS) TABLET (UD) PO PRN (01:00)
[2023-08-03 08:13] VITALS: BP 99/65; PULSE 79; RESP 14; TEMP 97.8
== END 2023-08-03 12:30 | disposition home or self-care (01) | DRG 807 ==
LOC: JDEL 18:38 → JLDR 23:10 → J3W 08-01 13:28
PROVIDERS: ADMIT Obstetrics & Gynecology; ATTEND Obstetrics & Gynecology
PROC: 10E0XZZ Delivery of Products of Conception, External Approach (ICD-10-PCS; principal; 2023-07-31)
DX: O42.02 Full-term premature rupture of membranes, onset of labor within 24 hours of rupture (principal); Z37.0 Single live birth; O28.5 Abnormal chromosomal and genetic finding on antenatal screening of mother; Z3A.39 39 weeks gestation of pregnancy
CPT/HCPCS: 36415; 36600; 80048; 82803; 85025; 85610; 85730; 86780; 86850; 86900; 86901